=== PATIENT | male | born 1945 | race Caucasian/White ===

== ENCOUNTER → 2016-10-09 | Outpatient (CLI) | payer MEDICARE, BC ==
[~2016-10-09] MED LIST: DOBUTamine DRIP for NUC MED 500 MG in DEXTROSE/WATER 1 250ML.BAG IV ONE
--- NOTE | 2016-10-09 12:08 | ECHOS ---
DATE OF SERVICE: 10/09/2016 AGE: 71Y SEX: M HT: 69" WT: 265 lbs. Protocol Trent: Others: Stage: Dur. of Exercise: 7 minutes *Heart Rate Blood Pressure *Rest: 77 Rest: 63/94 * *Max. Achieved: 132 Maximum BP: 211/72 85% PMHR: 128 100% PMHR: 150 *METS: INDICATIONS: Chest pain. MEDICATIONS: See list. CLINICAL INFORMATION: Chest pain, hypertension, family history of coronary artery disease, history of asthma, and history of MULTIPLE ALLERGIES to medications. Resting ECG shows sinus rhythm, rate 77 beats per minute, NE interval ( ), normal ST-T waves. Utilizing dobutamine protocol, ( ) increased up to 40 mcg up to 30 mcg ( ) per minutes. Patient attained a peak heart rate of 132 beats per minute, which is approximately 85% predicted maximum heart rate without any chest pain or pressure. Baseline images shows normal thickening and contractibility. Postexercise image shows improved contractibility and thickening consistent with normal dobutamine stress echocardiogram. REAL ESTATE JOB TITLES IMPRESSION: 1. Dobutamine stress echocardiogram. 2. Patient did not report any symptoms throughout the study.
== END | disposition home or self-care (01) ==
LOC: RADNMMAIN 09:55
PROVIDERS: ATTEND Internal Medicine Cardiovascular Disease
DX: R07.2 Precordial pain (principal)
CPT/HCPCS: 93017; 93350; J1250

== ENCOUNTER → 2017-03-29 | Outpatient (CLI) | payer MEDICARE, BC ==
[2017-03-29 09:38] LABS: Basophils # (A) 0.1 k/uL (0-0.2); Basophils % (A) 1 %; CH 29.4; CHCM 32.8; Eosinophils # (A) 0.3 k/uL (0-0.7); Eosinophils % (A) 6 %; HCT 47.8 % (39.0-53.0); HDW 3.03; HGB 15.6 gm/dL (13.0-17.5); Luc # (Auto) 0.15; Luc % (Auto) 3; Lymphocytes # (A) 1.5 k/uL (1.0-4.8); Lymphocytes % (A) 26 %; MCH 29.4 pg (25.0-35.0); MCHC 32.7 g/dL (31.0-37.0); MCV 89.9 fL (80.0-100.0); Mean Platelet Volume 7.2; Monocytes # (A) 0.4 k/uL (0-1.0); Monocytes % (A) 7 %; Neutrophils # (A) 3.4 k/uL (1.3-7.7); Neutrophils % (A) 57 %; RBC 5.32 m/uL (4.30-5.90); RDW 14.1 % (11.5-15.5); WBC 5.9 k/uL (3.8-10.6); WBC (Perox) 6.16
[2017-03-29 10:09] LABS: ALT 39 U/L (21-72); AST 30 U/L (17-59); Alkaline Phosphatase 81 U/L (38-126); Anion Gap 9 mmol/L; Blood Urea Nitrogen 15 mg/dL (9-20); Calcium 9.5 mg/dL (8.4-10.2); Carbon Dioxide 27 mmol/L (22-30); Chloride 105 mmol/L (98-107); Cholesterol 197 mg/dL (<200); Glucose 129 mg/dL (74-99); HDL Cholesterol 39 mg/dL (40-60); Non-African American GFR(MDRD) >60 (>60 ml/min/1.73 sqM); Potassium 4.6 mmol/L (3.5-5.1); Sodium 141 mmol/L (137-145); Total Bilirubin 0.8 mg/dL (0.2-1.3); Total Protein 7.1 g/dL (6.3-8.2)
== END | disposition home or self-care (01) ==
LOC: LABWHC1 09:00
PROVIDERS: ATTEND Internal Medicine
DX: Z00.00 Encounter for general adult medical examination without abnormal findings (principal); E78.5 Hyperlipidemia, unspecified; I10 Essential (primary) hypertension; Z12.5 Encounter for screening for malignant neoplasm of prostate
CPT/HCPCS: 84439; 80061; 80053; 84443; 85025; 36415; G0103

== ENCOUNTER → 2018-02-15 | Outpatient (CLI) | payer MEDICARE, BC ==
[2018-02-15 10:46] LABS: Albumin 3.9 g/dL (3.5-5.0); Alkaline Phosphatase 67 U/L (38-126); Blood Urea Nitrogen 22 mg/dL (9-20); Calcium 9.5 mg/dL (8.4-10.2); Carbon Dioxide 28 mmol/L (22-30); Chloride 106 mmol/L (98-107); Cholesterol 171 mg/dL (<200); Glucose 127 mg/dL (74-99); HDL Cholesterol 29 mg/dL (40-60); LDL Cholesterol,Calculated 98 mg/dL (0-99); Potassium 4.6 mmol/L (3.5-5.1); Sodium 141 mmol/L (137-145); Total Bilirubin 0.5 mg/dL (0.2-1.3); Total Protein 6.8 g/dL (6.3-8.2); Triglycerides 221 mg/dL (<150)
[2018-02-15 10:59] LABS: T4, Free (Free Thyroxine) 0.73 ng/dL (0.78-2.19)
[2018-02-15 11:13] LABS: PSA Annual Screen 0.97 ng/mL (0.00-4.00)
[2018-02-15 16:09] LABS: Hemoglobin A1C 6.4 % (4.0-6.0)
== END | disposition home or self-care (01) ==
LOC: LABWHC1 09:21
PROVIDERS: ATTEND Internal Medicine
DX: I10 Essential (primary) hypertension (principal); J45.50 Severe persistent asthma, uncomplicated; Z12.5 Encounter for screening for malignant neoplasm of prostate
CPT/HCPCS: 84439; 80061; 82040; 82247; 82310; 82435; 82565; 82374; 84075; 84132; 84155; 84295; 82947; 84443; 84520; 82306; 83036; 36415; G0103

== ENCOUNTER → 2019-02-17 | Outpatient (CLI) | payer MEDICARE, BC ==
[2019-02-17 11:17] LABS: Basophils # (A) 0.1 k/uL (0-0.2); Basophils % (A) 1 %; Eosinophils # (A) 0.4 k/uL (0-0.7); Eosinophils % (A) 6 %; HCT 42.5 % (39.0-53.0); HGB 14.4 gm/dL (13.0-17.5); Lymphocytes # (A) 1.6 k/uL (1.0-4.8); Lymphocytes % (A) 27 %; MCH 28.7 pg (25.0-35.0); MCHC 33.8 g/dL (31.0-37.0); MCV 84.9 fL (80.0-100.0); Monocytes # (A) 0.5 k/uL (0-1.0); Monocytes % (A) 9 %; Neutrophils # (A) 3.2 k/uL (1.3-7.7); Neutrophils % (A) 54 %; Platelet Count 222 k/uL (150-450); RDW 15.4 % (11.5-15.5); WBC 5.9 k/uL (3.8-10.6)
[2019-02-17 17:51] LABS: African American GFR (CKD) 98.5 (60.0-200.0); Albumin 4.1 g/dL (3.80-4.90); Albumin/Globulin Ratio 2.05 (1.60-3.17); Anion Gap 7.7 mmol/L (4.00-12.00); BUN/Creat Ratio 17.78 Ratio (12.00-20.00); Calcium 9.2 mg/dL (8.7-10.3); Carbon Dioxide 29.3 mmol/L (21.6-31.8); Chol/HDL Ratio 4.81; LDL Cholesterol,Calculated 106.2 mg/dL (0.0-131.0); Potassium 4.6 mmol/L (3.5-5.5); Total Bilirubin 0.8 mg/dL (0.2-1.2); Total Protein 6.1 g/dL (6.2-8.2); VLDL Calculation 30.8 mg/dL (5.00-40.00)
[2019-02-17 18:27] LABS: T4, Free (Free Thyroxine) 0.8 ng/dL (0.80-1.80)
== END | disposition home or self-care (01) ==
LOC: LABWHC1 10:06
PROVIDERS: ATTEND Internal Medicine
DX: Z00.00 Encounter for general adult medical examination without abnormal findings (principal); E78.5 Hyperlipidemia, unspecified; E55.9 Vitamin D deficiency, unspecified; R73.9 Hyperglycemia, unspecified; Z79.899 Other long term (current) drug therapy; Z12.5 Encounter for screening for malignant neoplasm of prostate
CPT/HCPCS: 36415; 80053; 80061; 82306; 84153; 84439; 84443; 85025

== ENCOUNTER → 2019-08-25 | Outpatient (CLI) | payer MEDICARE, BC ==
[2019-08-25 11:46] LABS: Basophils # (A) 0.1 k/uL (0-0.2); Basophils % (A) 1 %; Eosinophils # (A) 0.3 k/uL (0-0.7); Eosinophils % (A) 4 %; HCT 45.5 % (39.0-53.0); HGB 14.6 gm/dL (13.0-17.5); Lymphocytes # (A) 2.2 k/uL (1.0-4.8); Lymphocytes % (A) 30 %; MCH 27.4 pg (25.0-35.0); MCHC 32.1 g/dL (31.0-37.0); MCV 85.4 fL (80.0-100.0); Mean Platelet Volume 7.4; Monocytes # (A) 0.5 k/uL (0-1.0); Monocytes % (A) 6 %; Neutrophils # (A) 4.1 k/uL (1.3-7.7); Neutrophils % (A) 56 %; Platelet Count 266 k/uL (150-450); RBC 5.33 m/uL (4.30-5.90); RDW 14.3 % (11.5-15.5); WBC 7.3 k/uL (3.8-10.6)
[2019-08-25 12:08] LABS: Total Eosinophil Count 307 #EOS/uL (150-300)
== END | disposition home or self-care (01) ==
LOC: LABWHC1 10:39
PROVIDERS: ATTEND Internal Medicine
DX: J45.50 Severe persistent asthma, uncomplicated (principal)
CPT/HCPCS: 36415; 85008; 85025

== ENCOUNTER → 2020-04-29 | Outpatient (CLI) | payer MEDICARE, BC ==
[2020-04-29 12:13] LABS: Basophils % (A) 0 %; Eosinophils % (A) 0 %; HCT 45.8 % (39.0-53.0); HGB 14.4 gm/dL (13.0-17.5); Lymphocytes # (A) 1.6 k/uL (1.0-4.8); Lymphocytes % (A) 21 %; MCH 26.7 pg (25.0-35.0); MCHC 31.5 g/dL (31.0-37.0); MCV 84.9 fL (80.0-100.0); Mean Platelet Volume 7.9; Monocytes # (A) 0.5 k/uL (0-1.0); Monocytes % (A) 7 %; Neutrophils # (A) 5.2 k/uL (1.3-7.7); Neutrophils % (A) 70 %; Platelet Count 239 k/uL (150-450); RDW 14.2 % (11.5-15.5); WBC 7.4 k/uL (3.8-10.6)
[2020-04-29 20:29] LABS: African American GFR (CKD) 97.9 (60.0-200.0); Albumin 4.2 g/dL (3.80-4.90); Albumin/Globulin Ratio 1.75 (1.60-3.17); Anion Gap 11.5 mmol/L (4.00-12.00); BUN/Creat Ratio 15.56 Ratio (12.00-20.00); Calcium 9.2 mg/dL (8.7-10.3); Carbon Dioxide 25.5 mmol/L (21.6-31.8); Chol/HDL Ratio 4.46; Globulin 2.4 g/dL (1.6-3.3); LDL Cholesterol,Calculated 109.6 mg/dL (0.0-131.0); Non-African American GFR(CKD) 84.4 (60.0-200.0); Potassium 3.6 mmol/L (3.5-5.5); Total Protein 6.6 g/dL (6.2-8.2); VLDL Calculation 25.4 mg/dL (5.00-40.00)
[2020-04-29 20:37] LABS: Prostate Specific Antigen 1.2 ng/mL (0.0-6.5)
== END | disposition home or self-care (01) ==
LOC: LABWHC1 09:50
PROVIDERS: ATTEND Internal Medicine
DX: Z00.00 Encounter for general adult medical examination without abnormal findings (principal); Z12.5 Encounter for screening for malignant neoplasm of prostate; E55.9 Vitamin D deficiency, unspecified; E78.5 Hyperlipidemia, unspecified
CPT/HCPCS: 36415; 80053; 80061; 82306; 84153; 84439; 84443; 85025

== ENCOUNTER → 2021-06-02 | Outpatient (CLI) | payer MEDICARE, BC ==
[2021-06-02 13:13] LABS: Basophils # (A) 0.1 k/uL (0-0.2); Basophils % (A) 1 %; Eosinophils # (A) 0.3 k/uL (0-0.7); Eosinophils % (A) 5 %; HCT 45.2 % (39.0-53.0); HGB 14.9 gm/dL (13.0-17.5); Lymphocytes # (A) 2.3 k/uL (1.0-4.8); Lymphocytes % (A) 34 %; MCV 84.9 fL (80.0-100.0); Mean Platelet Volume 8.7; Monocytes # (A) 0.6 k/uL (0-1.0); Monocytes % (A) 8 %; Neutrophils # (A) 3.3 k/uL (1.3-7.7); Neutrophils % (A) 49 %; Platelet Count 252 k/uL (150-450); RBC 5.32 m/uL (4.30-5.90); RDW 14.2 % (11.5-15.5); WBC 6.8 k/uL (3.8-10.6)
[2021-06-02 13:26] LABS: Total Eosinophil Count 340 #EOS/uL (150-300)
== END | disposition home or self-care (01) ==
LOC: LABWHC1 11:54
PROVIDERS: ATTEND Internal Medicine
DX: J45.50 Severe persistent asthma, uncomplicated (principal)
CPT/HCPCS: 36415; 82785; 85008; 85025

== ENCOUNTER → 2021-12-28 | Outpatient (CLI) | payer MEDICARE, BC ==
--- NOTE | 2021-12-28 10:27 | CT ---
EXAMINATION TYPE: CT brain wo con DATE OF EXAM: 12/28/2021 COMPARISON: None HISTORY: double vision CT DLP: 1162.8 mGycm Automated exposure control for dose reduction was used. Helical imaging through the brain. FINDINGS: Minimal inflammatory change present in the inferior aspect of the left maxillary sinus. Calvarium is intact. Cortical atrophy is present. There is no hemorrhage or hydrocephalus. Periventricular white m atter shows patchy low attenuation. Cerebral vascular calcifications are present. Orbits show symmetr ic appearance. IMPRESSION: AGE-RELATED CHANGES OF ATROPHY AND PROBABLE CHRONIC SMALL VESSEL ISCHEMIA. MILD SINUS DISEASE.
--- NOTE | 2021-12-28 11:10 | US ---
EXAMINATION TYPE: US carotid duplex BILAT DATE OF EXAM: 12/28/2021 COMPARISON: NONE CLINICAL HISTORY: H53.2 Double vision. Patient has been having vision problems EXAM MEASUREMENTS: RIGHT: Peak Systolic Velocity (PSV) cm/sec ----- Right CCA: 87.9 ----- Right ICA: 71.3 ----- Right ECA: 90.9 ICA/CCA ratio: 0.8 RIGHT: End Diastole cm/sec ----- Right CCA: 16.0 ----- Right ICA: 13.1 ----- Right ECA: 11.3 LEFT: Peak Systolic Velocity (PSV) cm/sec ----- Left CCA: 69.5 ----- Left ICA: 156 ----- Left ECA: 107 ICA/CCA ratio: 2.2 LEFT: End Diastole cm/sec ----- Left CCA: 11.9 ----- Left ICA: 15.7 ----- Left ECA: 12.1 VERTEBRALS (direction of flow): Right Vertebral: Antegrade Left Vertebral: Antegrade Rhythm: Normal Grayscale, color Doppler, spectral Doppler imaging performed the carotid arteries. Waveform analysis does not show significant stenosis of the internal carotid artery on the right. Hemodynamic significa nt stenosis of the proximal internal carotid artery on the left is noted. Plaque seen in both bulbs IMPRESSION: Hemodynamic significant stenosis of the proximal internal carotid artery on the left aurora esponds to 50-69% diameter reduction by Doppler criteria is suspected although end-diastolic velocity is not elevated, an indirect measurement of carotid stenosis No hemodynamic significant stenosis of the proximal internal carotid artery on the right by Doppler criteria, an indirect measurement of ca rotid stenosis Criteria for Assigning % of Stenosis / Diameter reduction (Estimation based on the indirect measurements of the internal carotid artery velocities (ICA PSV). 1. Normal (no stenosis)=ICA PSV < 125 cm/s: ratio < 2.0: ICA EDV<40 cm/s. 2. Less than 50% stenosis=ICA PSV < 125 cm/s: ratio < 2.0: ICA EDV<40 cm/s. 3. 50 to 69% stenosis=ICA PSV of 125 to 230 cm/s: ration 2.0 ? 4.0: ICA EDV 40-100 cm/s. 4. Greater than 70% stenosis to near occlusion= ICA PSV > 230 cm/s: ratio > 4.0: ICA EDV > 100 cm/s. 5. Near occlusion= ICA PSV velocities may be low or undetectable: variable ratio and ICA EDV. 6. Total occlusion=unable to detect flow.
== END | disposition home or self-care (01) ==
LOC: RADCTMAIN 09:33
PROVIDERS: ATTEND Internal Medicine
DX: H53.2 Diplopia (principal)
CPT/HCPCS: 70450; 93880

== ENCOUNTER → 2023-01-22 | Outpatient (CLI) | payer MEDICARE ==
[2023-01-22 11:04] VITALS: BP 188/82; PULSE 77; RESP 14; TEMP 98.5
--- NOTE | 2023-01-22 14:32 | P.PAINPG ---
PQRS Measure Charge Sheet Comment: HISTORY OF PRESENT ILLNESS: 77 yr old male w at side as a referral from Dr Stevens presents today w severe and chronic LBS secondary to DDD, spndylosis and afacet arthropathy wtihotu meylopathy for evaluation. Pt states pain level is provoked at 8 /10 in intensity, constant, localized in the R lowr lumbar spine, tight in character w shooting pain towards the R sacrum. Pain is provoked by heat or overactivity. Pain is alleviated by PT w massage x 6 wks which he is currently in, use of a cane for ambulatory assistance, medications (Tramadol, Ibu), topical, repositioning and rest. Oswestry axial pain score at 26. PMH: OA, HTN, DM II, GERD PSH: BL Knee Replacements, L RCT Repair x2, C4-C5 Fusion w ACDF SH: Hx of tobacco use, No ETOH use, No illicit drug use, . FH: Fa- CAD. Mo- ALS. All: See list Meds: See list REVIEW OF ORGAN SYSTEMS: CONSTITUTIONAL: No fevers or chills. No recent weight loss. NEUROLOGICAL: + numbness and tingling along the distal extremities. No seizure disorders or headaches. MUSCULOSKELETAL: + pain PSYCHIATRIC: Denies current depression or suicidal thoughts. Physical Examinations : Constitutional : Cooperative , not in acute distress . Neurologic : Cranial nerve II to XII intact. No focal neurological deficits. Psychiatric : alert & oriented x 3. Matching mood & appropriate affect. Judgment & insight intact. Musculoskeletal : Cervical Spine Motor strength in the deltoid and biceps: Normal right side. Normal Left side Motor strength biceps and the wrist extensors: Normal right side . Normal left side Motor strength in the triceps muscle: Normal right side. Normal left side Deep tendon reflexes: Normal at the biceps. Normal at Brachioradialis. Normal at triceps Vertebral body tenderness to deep palpation over Cervical facet loading test: positive bilaterally Spurling test: positive bilaterally Neck distraction test: positive bilaterally Magda sign: positive bilaterally Lumbar spine Motor strength lower extremities ,thigh and legs 5/5 Right side , 5/5 Left side Deep tendon reflexes : Normal Knee Jerk. Normal Ankle Jerk Vertebral body tenderness over R L5 Grande Test positive Lumbar facet Loading Test: positive Right / positive Left Range of motion of the lumbar spine Flexion 30 degrees, extension 10 degrees Straight Leg Raise test: Left/ Right positive at 30 degrees Eliel test: positive right / positive left. Severe tenderness over the Sacroiliac joint on the Right / Left sides Gaenslen test: positive bilaterally Seated flexion test: positive bilaterally. Sacral spine : Severe tenderness over the Sacroiliac joint: right side / left side Range of motion: Flexion of the lumbar spine <60 degrees Range of motion: Extension of the lumbar spine <20 degrees Gaenslen's Test positive Terrence's Test positive Eliel test: positive right side / left side Thigh Thrust Test Sacral Thrust Test Imaging: MRI noncontrast of the lumbar spine from 10/06/22 reviewed Assessment/ Plan : Lumbar DDD Recommendation of R TFESI L5-S1. May need a series of injections for optimal pain relief. Risks, benefits of procedure discussed and patient verbalized understanding. Admits to aspirin or anti- coagulant use or medical history of diabetes. Protocol for discontinuation/ continuation of medications javid procedure discussed. Minimal anesthesia provided, if clinically indicated, consisting of Versed and Fentanyl. Ultram 50mg #12 NR. Use, side effects, adverse reactions and safe storage discussed. All questions answered. I have spent greater than 30 minutes on patient care today. Dr Vergara was available by phone for the evaluation of this patient. The time was used to review the medical records including relevant urine studies and Prescription history (MAPs), review of the available imaging, evaluation and examination of the patient, coordination of care with the medical staff and if applicable referring physicians, as well as creation of the medical record PQRS Narrative: Smoking Status Former smoker Home Medications: Ambulatory Orders Brimonidine Tartrate [Alphagan P] 1 drop OP DAILY 10/27/13 Budesonide [Pulmicort] 200 meq INHALATION BID 10/27/13 Cyclobenzaprine [Flexeril] 5 mg PO BID PRN 10/27/13 Desloratadine/Pseudoephedrine [Clarinex-D 12 Hour Tablet] 5 mg PO DAILY 10/27/13 EPINEPHrine (Auto Inject) [Epipen] 0.3 mg IM ONCE PRN 10/27/13 Fluconazole [Diflucan] 100 mg PO BID PRN 10/27/13 Ipratropium/Albuterol Sulfate [Duoneb 0.5 mg-3 mg/3 ml Soln] 1 applicate INHALATION DIRECTED PRN 10/27/13 Potassium Chloride 20 meq PO BID 10/27/13 Travoprost [Travatan Z] 1 drop OP DAILY 10/27/13 diphenhydrAMINE [Benadryl] 100 mg PO DIRECTED PRN 10/27/13 B Complex-Vit C-Vit E-Zinc [Z-Bec] 1 each PO DAILY@1200 10/31/13 Calcium Carbonate/Vitamin D3 [Os-Lyle 500+D3 Caplet] 1 tab PO BID 10/31/13 Esomeprazole Magnesium [NexIUM] 20 mg PO BID 10/31/13 Guaifenesin/Pseudoephedrne HCl [Mucinex D ER Tablet] 1 tab PO DIRECTED PRN 10/31/13 Ipratropium/Albuterol Sulfate [Duoneb 0.5 mg-3 mg/3 ml Soln] 3 ml INHALATION DIRECTED PRN 10/31/13 Multivitamin [Men's Multi-Vitamin] 1 each PO DIRECTED 10/31/13 Wrgq-Takv-Xgr 6.25-5-10Mg/5Ml [Phenergan VC with Codeine] 5 ml PO DIRECTED PRN 10/31/13 Metoprolol Succinate [Toprol XL] 37.5 mg PO BID 09/01/14 Losartan [Cozaar] 50 mg PO BID 10/29/14 Bimatoprost [Lumigan .01% Ophth Soln] 1 drop BOTH EYES DIRECTED 11/30/16 Omalizumab [Xolair] 300 mg SQ DIRECTED 06/28/17 Ergocalciferol [Vitamin D2 (DRISDOL)] 1 tab PO WEEKLY 02/28/18 metFORMIN HCL [Glucophage] 500 mg PO BID 10/20/21 Aspirin EC [Ecotrin Low Dose] 81 mg PO DAILY 01/22/23 Controlled Substance Measures - Controlled Substance Measures Is patient prescribed a controlled substance at discharge?: Yes When asked, does pt state using other controlled substances?: Yes If prescribed controlled substance>3 days was MAPS reviewed?: Prescribed <3 Days
== END ==
LOC: PNWHC3 10:07
PROVIDERS: ATTEND Specialist
DX: M47.816 Spondylosis without myelopathy or radiculopathy, lumbar region (principal); M51.36 Other intervertebral disc degeneration, lumbar region; M48.061 Spinal stenosis, lumbar region without neurogenic claudication; M19.90 Unspecified osteoarthritis, unspecified site; I10 Essential (primary) hypertension; E11.9 Type 2 diabetes mellitus without complications; K21.9 Gastro-esophageal reflux disease without esophagitis; Z91.018 Allergy to other foods; Z91.011 Allergy to milk products; Z91.040 Latex allergy status; Z91.013 Allergy to seafood; Z91.048 Other nonmedicinal substance allergy status; Z91.010 Allergy to peanuts; Z88.6 Allergy status to analgesic agent; Z88.1 Allergy status to other antibiotic agents; Z79.84 Long term (current) use of oral hypoglycemic drugs; Z79.899 Other long term (current) drug therapy; Z87.891 Personal history of nicotine dependence; Z88.8 Allergy status to other drugs, medicaments and biological substances; Z79.82 Long term (current) use of aspirin; Z79.01 Long term (current) use of anticoagulants
CPT/HCPCS: 99211

== ENCOUNTER → 2023-02-08 | Day surgery (SDC) | payer MEDICARE ==
[~2023-02-08] MED LIST changes: +DEXAMETHASONE SOD PHOSPHATE 10 MG/ML 1 ML VIAL ONE; -DOBUTamine DRIP for NUC MED 500 MG in DEXTROSE/WATER 1 250ML.BAG IV ONE; +LACTATED RINGERS 1,000 ML IV SCH
[2023-02-08 10:06] VITALS: TEMP 97
[2023-02-08 10:12] LABS: Glucose,Whole Blood 112 mg/dL (70-110)
--- NOTE | 2023-02-08 10:28 | P.PCN ---
Date of Procedure: 02/08/23 Procedure(s) Performed: PREOPERATIVE DIAGNOSIS: 1-Lumbar radiculopathy . 2-lumbar degenerative disc disease. 3-lumbar spondylosis with lumbar facet arthropathy without myelopathy POSTOPERATIVE DIAGNOSIS: 1-lumbar radiculopathy. 2-lumbar degenerative disc disease. 3-lumbar spondylosis with facet arthropathy without myelopathy PROCEDURE 1. Transforaminal epidural steroid injection under fluoroscopic guidance at right L5-S1 level. (Fluoroscopy images stored on file in the radiology Department ) ANESTHESIA: Local with 1% lidocaine 3 ml. EBL: Minimal PROCEDURE INDICATION: The patient with low back pain and radiculopathy symptoms unresponsive to conservative treatment. PROCEDURE DESCRIPTION / TECHNIQUE: The patient was seen and identified in the preoperative area. Risks, benefits, complications, and alternatives were discussed with the patient. The patient agreed to proceed with the procedure and signed the consent. IV was started, and vital signs were stable. Patient was taken to the OR and time out was completed. The patient was placed in the prone position on procedure table and a pillow was placed under the abdomen to reduce lumbar lordosis. The lumbosacral area was prepped and draped in the usual sterile fashion. Critical pause was taken. Vital signs were closely monitored during the procedure. Using oblique fluoroscopy, the chin of the ``Chad dog at L5-S1 level was identified, and the skin and deeper tissues just below was localized with 1% lidocaine. Subsequently, a 22-gauge 5-inch spinal needle was advanced under a tunneled view fluoroscopic guidance just underneath the chin of the ``Chad dog at the right L5-S1 Under lateral fluoroscopy, the needle was then advanced to the posterior border of the interforaminal space. After negative aspiration of CSF and blood and with no paresthesias, Subsequently, 3 mL of block solution containing 10 mg Dexamethasone and 2 mL of 0.9% normal saline PF was injected. Needle was removed . At the end of the procedure, skin was cleansed, and bandages were applied. COMPLICATIONS:none DISPOSITION / PLANS: The patient was placed in a supine position and transferred to the recovery area in a stable condition for observation. There was no evidence of lower extremity motor or sensory deficit after the procedure. Patient was discharged from the recovery room after meeting discharge criteria. Home discharge instructions were given to the patient by the staff. The patient was reexamined prior to discharge. Isovue was not injected because patient has ALLERGY to IVP dye
[2023-02-08 10:48] VITALS: RESP 16
[2023-02-08 10:50] VITALS: BP 180/78; PULSE 64
--- NOTE | 2023-02-08 10:54 | FL ---
Intraoperative/procedural fluoroscopic services were provided. Total fluoroscopy time is 1.4 seconds with a total of 2 submitted images to PACS. Please see the operative/procedural note for further deta ils. DAP: 0.08592 mGym2
== END ==
LOC: ORPAIN 09:01
PROVIDERS: ATTEND Specialist
DX: M51.16 Intervertebral disc disorders with radiculopathy, lumbar region (principal); M47.26 Other spondylosis with radiculopathy, lumbar region; Z79.82 Long term (current) use of aspirin
CPT/HCPCS: 64483; J1100

== ENCOUNTER → 2023-06-08 | Outpatient (CLI) | payer MEDICARE ==
--- NOTE | 2023-06-08 17:33 | CA ---
Transthoracic Echo Report Name: Griffin Ramirez Age: 77 Gender: M : 1945 Exam Date: 06/08/2023 11:38 Exam Location: [facility] Ht (in): 70 Wt (lb): 250 Ordering Physician: Shadi Irizarry MD ([id number]) Attending/Referring Phys: Juan C MACDONALD [employer] Operator Norma Bradley RDCS Procedure CPT: Indications: I42.0 Dilated Cardiomyopathy Cardiac Hx: Technical Quality: Fair Contrast 1: Total Dose (mL): Contrast 2: Total Dose (mL): MEASUREMENTS (Male / Female) Normal Values 2D ECHO LV Diastolic Diameter PLAX 5.8 cm 4.2 - 5.9 / 3.9 - 5.3 cm LV Systolic Diameter PLAX 4.2 cm IVS Diastolic Thickness 1.9 cm 0.6 - 1.0 / 0.6 - 0.9 cm LVPW Diastolic Thickness 1.6 cm 0.6 - 1.0 / 0.6 - 0.9 cm LV Relative Wall Thickness 0.6 RV Internal Dim ED PLAX 3.4 cm LV Diastolic Volume MOD BP 110.9 cm??? 67 - 155 / 56 - 104 cm??? LV Systolic Volume MOD BP 60.0 cm??? 22 - 58 / 19 - 49 cm??? LV Ejection Fraction MOD BP 45.9 % >= 55 % LV Cardiac Index MOD BP 1627.2 cm???/min???m??? LV Diastolic Volume MOD 4C 154.0 cm??? LV Systolic Volume MOD 4C 85.1 cm??? LV Ejection Fraction MOD 4C 44.8 % LV Cardiac Index MOD 4C 2203.3 cm???/min???m??? LV Diastolic Length 4C 8.7 cm LV Systolic Length 4C 7.8 cm LV Diastolic Volume MOD 2C 80.1 cm??? LV Systolic Volume MOD 2C 43.2 cm??? LV Ejection Fraction MOD 2C 46.0 % LV Cardiac Index MOD 2C 1178.0 cm???/min???m??? LV Diastolic Length 2C 8.5 cm LV Systolic Length 2C 8.1 cm M-MODE Aortic Root Diameter MM 4.1 cm LA Systolic Diameter MM 3.7 cm LA Ao Ratio MM 0.9 DOPPLER AV Peak Velocity 165.7 cm/s AV Peak Gradient 11.0 mmHg AV Mean Velocity 114.1 cm/s AV Mean Gradient 5.9 mmHg AV Velocity Time Integral 30.0 cm AI Peak Velocity 406.1 cm/s AI Peak Gradient 66.0 mmHg AI Pressure Half Time 611.6 ms LVOT Peak Velocity 115.3 cm/s LVOT Peak Gradient 5.3 mmHg LVOT Velocity Time Integral 21.4 cm Mitral E Point Velocity 164.1 cm/s Mitral A Point Velocity 0.4 cm/s Mitral E to A Ratio 412.1 MV Deceleration Time 211.7 ms MV E' Velocity 3.7 cm/s Mitral E to MV E' Ratio 44.3 FINDINGS Left Ventricle Severely increased septal wall thickness. Mildly increased left ventricular systolic volume. Mildly decreased left ventricular ejection fraction. Left ventricular ejection fraction is estimated at 45-50 %. Right Ventricle Normal right ventricular size and function. Right ventricular systolic pressure within normal limits. Right Atrium Normal right atrial size. Left Atrium Normal left atrial size. Mitral Valve Structurally normal mitral valve. Mitral valve thickened. Mild mitral annular calcification. Mild mitral regurgitation. Aortic Valve No aortic stenosis. Mild aortic regurgitation. Tricuspid Valve Structurally normal tricuspid valve. Mild tricuspid regurgitation. Pulmonic Valve Structurally normal pulmonic valve. Trace pulmonic regurgitation. Pericardium No pericardial effusion. Aorta Normal size aortic root and proximal ascending aorta. CONCLUSIONS Left ventricular ejection fraction is estimated at 45-50 %. Mildly decreased left ventricular ejection fraction. Mildly dilated LV cavity No obvious regional wall motion abnormality Calcific aortic valve with mild regurgitation Mild MR, mitral annular calcification . Previewed by: Dr Alvaro Soto (Electronically Signed) Final Date: 08 June 2023 17:33
== END | disposition home or self-care (01) ==
LOC: RADECHMAIN 11:04
PROVIDERS: ATTEND Internal Medicine Cardiovascular Disease
DX: I08.0 Rheumatic disorders of both mitral and aortic valves (principal); I42.0 Dilated cardiomyopathy; I80.9 Phlebitis and thrombophlebitis of unspecified site
CPT/HCPCS: 93306

== ENCOUNTER → 2023-08-15 | Outpatient (CLI) | payer MEDICARE ==
[2023-08-15 10:33] VITALS: BP 137/78; PULSE 89; RESP 15; TEMP 98.6
--- NOTE | 2023-08-15 14:47 | P.PAINPG ---
PQRS Measure Charge Sheet Comment: HISTORY OF PRESENT ILLNESS: A 77 yr old male w at side presents today w severe and chronic LBP secondary to DDD, spondylosis and facet arthropathy without myelopathy, R Sacroiliitis for evaluation s/p R TFESI L5-S1 #1. Pt states he experienced % pain relief x 6 mo s/p procedure. Pt states pain level is provoked at 7 /10 in intensity, constant, localized in the R lower lumbar spine and tailbone, predominantly axial, tight in character w occasional shooting pain towards the R sacrum. Pain is provoked by sitting for periods >20 min. Pain is alleviated by PT w massage x 6 wks which he is currently in, use of a cane for ambulatory assistance, medications, topical, repositioning and rest. Oswestry axial pain score at 26. Interventional procedures include R TFESI L5-S1 x1 Medications include Tramadol, Ibu REVIEW OF ORGAN SYSTEMS: CONSTITUTIONAL: No fevers or chills. No recent weight loss. NEUROLOGICAL: + numbness and tingling along the distal extremities. No seizure disorders or headaches. MUSCULOSKELETAL: + pain PSYCHIATRIC: Denies current depression or suicidal thoughts. Physical Examinations : Constitutional : Cooperative , not in acute distress . Neurologic : Cranial nerve II to XII intact. No focal neurological deficits. Psychiatric : alert & oriented x 3. Matching mood & appropriate affect. Judgment & insight intact. Musculoskeletal : Cervical Spine Motor strength in the deltoid and biceps: Normal right side. Normal Left side Motor strength biceps and the wrist extensors: Normal right side . Normal left side Motor strength in the triceps muscle: Normal right side. Normal left side Deep tendon reflexes: Normal at the biceps. Normal at Brachioradialis. Normal at triceps Vertebral body tenderness to deep palpation over Cervical facet loading test: positive bilaterally Spurling test: positive bilaterally Neck distraction test: positive bilaterally Magda sign: positive bilaterally Lumbar spine Motor strength lower extremities ,thigh and legs 5/5 Right side , 5/5 Left side Deep tendon reflexes : Normal Knee Jerk. Normal Ankle Jerk Vertebral body tenderness over R L5 Grande Test positive Lumbar facet Loading Test: positive Right / positive Left Range of motion of the lumbar spine Flexion 30 degrees, extension 10 degrees Straight Leg Raise test: Left/ Right positive at 30 degrees Eliel test: positive right / positive left. Severe tenderness over the Sacroiliac joint on the Right / Left sides Gaenslen test: positive bilaterally Seated flexion test: positive bilaterally. Sacral spine : Severe tenderness over the Sacroiliac joint: right side / left side Range of motion: Flexion of the lumbar spine <60 degrees Range of motion: Extension of the lumbar spine <20 degrees Gaenslen's Test positive on R Eliel test: positive right side / left side Thigh Thrust Test +R Sacral Thrust Test Imaging: MRI noncontrast of the lumbar spine from 10/06/22 reviewed Assessment/ Plan : Lumbar DDD, R Sacroiliitis Recommendation of R SI injection #1. May need a series of injections for optimal pain relief. Risks, benefits of procedure discussed and patient verbalized understanding. Admits to aspirin or anti- coagulant use or medical history of diabetes. Protocol for discontinuation/ continuation of medications javid procedure discussed. Ultram 50mg #12 NR. Use, side effects, adverse reactions and safe storage discussed. All questions answered. I have spent greater than 30 minutes on patient care today. Dr Vergara was available by phone for the evaluation of this patient. The time was used to review the medical records including relevant urine studies and Prescription history (MAPs), review of the available imaging, evaluation and examination of the patient, coordination of care with the medical staff and if applicable referring physicians, as well as creation of the medical record PQRS Narrative: Smoking Status Former smoker Hx Alcohol Use (MH) No Home Medications: Ambulatory Orders Brimonidine Tartrate [Alphagan P] 1 drop OP DAILY 10/27/13 Budesonide [Pulmicort] 200 meq INHALATION BID 10/27/13 Cyclobenzaprine [Flexeril] 5 mg PO BID PRN 10/27/13 Desloratadine/Pseudoephedrine [Clarinex-D 12 Hour Tablet] 5 mg PO DAILY 10/27/13 EPINEPHrine (Auto Inject) [Epipen] 0.3 mg IM ONCE PRN 10/27/13 Fluconazole [Diflucan] 100 mg PO BID PRN 10/27/13 Ipratropium/Albuterol Sulfate [Duoneb 0.5 mg-3 mg/3 ml Soln] 1 applicate INHALATION DIRECTED PRN 10/27/13 Travoprost [Travatan Z] 1 drop OP DAILY 10/27/13 diphenhydrAMINE [Benadryl] 100 mg PO DIRECTED PRN 05/05/14 B Complex-Vit C-Vit E-Zinc [Z-Bec] 1 each PO DAILY@1200 10/31/13 Calcium Carbonate/Vitamin D3 [Os-Lyle 500+D3 Caplet] 1 tab PO BID 10/31/13 Esomeprazole Magnesium [NexIUM] 20 mg PO BID 10/31/13 Guaifenesin/Pseudoephedrne HCl [Mucinex D ER Tablet] 1 tab PO DIRECTED PRN 10/31/13 Ipratropium/Albuterol Sulfate [Duoneb 0.5 mg-3 mg/3 ml Soln] 3 ml INHALATION DIRECTED PRN 10/31/13 Multivitamin [Men's Multi-Vitamin] 1 each PO DIRECTED 10/31/13 Mbfr-Giwi-Jfa 6.25-5-10Mg/5Ml [Phenergan VC with Codeine] 5 ml PO DIRECTED PRN 10/31/13 Bimatoprost [Lumigan .01% Ophth Soln] 1 drop BOTH EYES DIRECTED 11/30/16 Ergocalciferol [Vitamin D2 (DRISDOL)] 1 tab PO WEEKLY 02/28/18 metFORMIN HCL [Glucophage] 500 mg PO BID 10/20/21 Aspirin EC [Ecotrin Low Dose] 81 mg PO DAILY 01/22/23 traMADol HCL 50 mg PO Q6H PRN 3 Days #12 tab 01/22/23 Ibuprofen [Motrin] 1 tab PO TID PRN 02/08/23 Metoprolol Succinate [Toprol XL] 1 tab PO BID 02/08/23 Controlled Substance Measures - Controlled Substance Measures Is patient prescribed a controlled substance at discharge?: No
== END ==
LOC: PNWHC3 09:43
PROVIDERS: ATTEND Specialist
DX: M51.36 Other intervertebral disc degeneration, lumbar region (principal); M46.1 Sacroiliitis, not elsewhere classified; Z87.891 Personal history of nicotine dependence; Z79.82 Long term (current) use of aspirin; Z91.018 Allergy to other foods; Z88.8 Allergy status to other drugs, medicaments and biological substances; Z91.040 Latex allergy status; Z91.011 Allergy to milk products; Z91.013 Allergy to seafood; Z88.1 Allergy status to other antibiotic agents; Z91.09 Other allergy status, other than to drugs and biological substances; Z91.010 Allergy to peanuts
CPT/HCPCS: 99211

== ENCOUNTER 2023-08-30 09:33 | Day surgery (SDC) | payer MEDICARE ==
[2023-08-27 17:03] VITALS: BMI 36.9
[~2023-08-30 09:33] MED LIST changes: -DEXAMETHASONE SOD PHOSPHATE 10 MG/ML 1 ML VIAL ONE
[2023-08-30 10:08] LABS: Glucose,Whole Blood 128 mg/dL (70-110)
[2023-08-30 10:14] VITALS: TEMP 97.2
[2023-08-30] MEDS ORDERED: ROPIVACAINE 5MG/ML 20ML VIAL ONE (10:29)
[2023-08-30] MEDS ORDERED: DEXAMETHASONE SOD PHOSPHATE 10 MG/ML 1 ML VIAL ONE (10:29)
--- NOTE | 2023-08-30 10:40 | P.PCN ---
Date of Procedure: 08/30/23 Procedure(s) Performed: Procedure=1- Right sacroiliac joints steroid injection under fluoroscopy guidance (fluoroscopy image stored on file in the radiology Department ) Preoperative diagnosis= 1- right sacroiliitis 2-lumbar degenerative disc disease 3-lumbar facet arthropathy Postoperative diagnosis=Same as preop Diagnosis . Complication = none Condition= stable Anesthesia= local anesthesia with ropivacaine 0.5% 4 ml only Indication for the procedure= patient complaining of low back pain , examination was positive for severe tenderness over the sacroiliac joints bilaterally and patient diagnosed with sacroiliitis, for this reason he was good candidate for sacroiliac joint steroid injection. Description of the procedure= procedure risk and benefits discussed with the patient, including but not limited, risk of infection and bleeding, and ALLERGIC reaction to the medication and not complete pain relief and patient agreed with the preceding patient taken to the operating room, placed in prone position or standard monitors applied to the patient then after induction of anesthesia back prepped with chlorhexidine 3 times , Then under strict sterile technique, first I did the right sacroiliac joint the which was identified under fluoroscopy guidance been local infiltration of the skin and subcu interstitial with lidocaine 1% then 22-gauge 5 inches long Quincke Needle advanced slowly under fluoroscopy and placed in the right sacroiliac joint needle placement confirmed with AP and oblique and lateral view, and after appropriate needle placement confirmed and after negative aspiration, or heme , then Ropivacaine 0.5% 2 mL, and 15 mg of Dexamethasone mixed together and injected in the right sacroiliac joint after negative aspiration patient tolerated the procedure well without any complication. note= Isovue was not injected because patient had allergy to iodine I used dexamethasone ( instead of Depomedrol ) because patient had severe allergy to milk
[2023-08-30] MEDS: IV FLUID CONTINUATION 1,000 ML IV ONE (10:43)
[2023-08-30 11:53] VITALS: BP 170/80; PULSE 74; RESP 97
--- NOTE | 2023-08-30 13:21 | FL ---
EXAMINATION TYPE: FL guided pain mgmt statistic DATE OF EXAM: 08/30/2023 FLUOROSCOPY Fluoroscopy time of 2.6 minutes was used during SI joint injection. 2 image/s document/s the procedu re. dap [id number] mGycm2.
== END 2023-08-30 11:42 | disposition home or self-care (01) ==
LOC: ORPAIN 09:33
PROVIDERS: ATTEND Anesthesiology
DX: M46.1 Sacroiliitis, not elsewhere classified (principal); M51.36 Other intervertebral disc degeneration, lumbar region; M47.816 Spondylosis without myelopathy or radiculopathy, lumbar region
CPT/HCPCS: 27096; J1100; J2795

== ENCOUNTER 2023-09-19 19:20 | Emergency (ER) | payer MEDICARE ==
[2023-09-19 21:08] LABS: Basophils # (A) 0.1 k/uL (0-0.2); Basophils % (A) 1 %; Eosinophils # (A) 0.3 k/uL (0-0.7); Eosinophils % (A) 4 %; HCT 46.1 % (39.0-53.0); HGB 15.5 gm/dL (13.0-17.5); Lymphocytes # (A) 1.7 k/uL (1.0-4.8); Lymphocytes % (A) 24 %; MCH 30.8 pg (25.0-35.0); MCHC 33.6 g/dL (31.0-37.0); MCV 91.7 fL (80.0-100.0); Monocytes # (A) 0.6 k/uL (0-1.0); Monocytes % (A) 8 %; Neutrophils # (A) 4.2 k/uL (1.3-7.7); Neutrophils % (A) 60 %; Platelet Count 202 k/uL (150-450); RBC 5.03 m/uL (4.30-5.90); RDW 12.6 % (11.5-15.5); WBC 7.1 k/uL (3.8-10.6)
[2023-09-19 21:24] LABS: ALT 14 U/L (4-49); AST 27 U/L (17-59); African American GFR (CKD) >90 (>60 ml/min/1.73 sqM); Albumin 4.1 g/dL (3.5-5.0); Alkaline Phosphatase 75 U/L (38-126); Anion Gap 9 mmol/L; Blood Urea Nitrogen 18 mg/dL (9-20); Calcium 9.7 mg/dL (8.4-10.2); Carbon Dioxide 25 mmol/L (22-30); Chloride 104 mmol/L (98-107); Glucose 130 mg/dL (74-99); Magnesium 1.8 mg/dL (1.6-2.3); Non-African American GFR(CKD) 86 (>60 ml/min/1.73 sqM); Potassium 4.4 mmol/L (3.5-5.1); Sodium 138 mmol/L (137-145); Total Bilirubin 0.8 mg/dL (0.2-1.3); Total Protein 7.1 g/dL (6.3-8.2)
[2023-09-19 21:27] LABS: Partial Thromboplastin Time 26.4 sec (22.0-30.0); Prothrombin Time 10.7 sec (10.0-12.5)
--- NOTE | 2023-09-19 21:33 | XR ---
EXAMINATION TYPE: XR chest 2V DATE OF EXAM: 09/19/2023 8:33 PM CLINICAL INDICATION:Male, 77 years old with history of Chest Pain; [facility] COMPARISON: 04/10/2023 chest x-ray and before TECHNIQUE: XR chest 2V. Frontal and lateral views of the chest.. FINDINGS: Lines/Tubes/Devices: EKG leads overlie the chest. No indwelling lines are seen. Heart/mediastinum: Heart appears mildly to moderately enlarged. Tortuous aorta with atherosclerotic calcification. Pulmonary vascularity: Pulmonary vascular congestion. Increased interstitial markings can be seen wit h edema or pneumonitis. An element of chronic change is possible. Lungs/Pleura: There is no evidence of pleural effusion, focal consolidation, or pneumothorax. Nodula r density over the right infrahilar region not seen on priors. Musculoskeletal: No acute osseous abnormality demonstrated in the limits of the exam. Moderate degen erative changes of the spine with multilevel osteophytes. Mild degenerative change of the shoulders. ACDF hardware over the lower cervical region. Other findings: None. IMPRESSION: 1. Cardiomegaly and mild pulmonary vascular congestion. Correlate clinically for congestive heart fa ilure. 2. Nodular density right infrahilar region, of uncertain etiology. Recommend CT chest with contrast in the near future for further assessment.
--- NOTE | 2023-09-19 21:40 | ED ---
General Adult HPI - General Chief complaint: Recheck/Abnormal Lab/Rx Stated complaint: Hypertension Time Seen by Provider: 09/19/23 20:19 Source: patient Mode of arrival: ambulatory Limitations: no limitations - History of Present Illness Initial comments: 77-year-old male presenting to the ED with a chief complaint of hypertension. Per 's , yesterday patient was having episodes where he seems to take longer to respond compared to usual and was staring off in space. States that he would slowly come around to what she was saying. Reports today the patient is back to his normal self. States at that time due to symptoms checked his blood pressure and found to be in the 200s systolic. Reports that she has intermittently checked his blood pressure today and has found it to be in the 200s systolic prompting presentation to the ED for further evaluation. Patient denies chest pain, shortness of breath, nausea, vomiting. Patient at this time currently has no complaints. - Related Data Home Medications Medication Instructions Recorded Confirmed Budesonide [Pulmicort] 1 dose INHALATION BID 10/27/13 08/27/23 Cyclobenzaprine [Flexeril] 5 mg PO BID PRN 10/27/13 08/27/23 Desloratadine/Pseudoephedrine 5 mg PO DAILY 10/27/13 08/27/23 [Clarinex-D 12 Hour Tablet] EPINEPHrine (Auto Inject) [Epipen] 0.3 mg IM ONCE PRN 10/27/13 08/27/23 Fluconazole [Diflucan] 100 mg PO BID PRN 10/27/13 08/27/23 diphenhydrAMINE [Benadryl] 100 mg PO DIRECTED PRN 10/27/13 08/27/23 B Complex-Vit C-Vit E-Zinc [Z-Bec] 1 each PO DAILY 10/31/13 08/27/23 Calcium Carbonate/Vitamin D3 1 tab PO BID 10/31/13 08/27/23 [Os-Lyle 500+D3 Caplet] Esomeprazole Magnesium [NexIUM] 20 mg PO BID 10/31/13 08/27/23 Guaifenesin/Pseudoephedrne HCl 1 tab PO DIRECTED PRN 10/31/13 08/27/23 [Mucinex D ER Tablet] Ipratropium/Albuterol Sulfate 3 ml INHALATION DIRECTED PRN 10/31/13 08/27/23 [Duoneb 0.5 mg-3 mg/3 ml Soln] Multivitamin [Men's Multi-Vitamin] 1 each PO DAILY 10/31/13 08/27/23 Bimatoprost [Lumigan .01% Ophth 1 drop BOTH EYES HS 11/30/16 08/27/23 Soln] Ergocalciferol [Vitamin D2 1 tab PO WEEKLY 02/28/18 08/27/23 (DRISDOL)] Aspirin EC [Ecotrin Low Dose] 81 mg PO DAILY 01/22/23 08/27/23 Metoprolol Succinate [Toprol XL] 50 mg PO BID 02/08/23 08/27/23 Previous Rx's Medication Instructions Recorded traMADol HCL 50 mg PO Q6H PRN 3 Days #12 tab 01/22/23 Allergies Allergy/AdvReac Type Severity Reaction Status Date / Time avocado [Avocado] Allergy Severe Anaphylaxis Verified 09/19/23 19:31 banana [Banana] Allergy Severe Anaphylaxis Verified 09/19/23 19:31 iodine Allergy Severe Anaphylaxis Verified 09/19/23 19:31 kiwi Allergy Severe Anaphylaxis Verified 09/19/23 19:31 latex Allergy Severe Anaphylaxis Verified 09/19/23 19:31 milk Allergy Severe Anaphylaxis Verified 09/19/23 19:31 shellfish derived Allergy Severe Anaphylaxis Verified 09/19/23 19:31 MADAI Inhibitors Allergy ASTHMA Verified 09/19/23 19:31 casein [Casein] Allergy Unknown Verified 09/19/23 19:31 chocolate flavor Allergy Unknown Verified 09/19/23 19:31 clarithromycin [From Biaxin] Allergy Rash/Hives Verified 09/19/23 19:31 diltiazem HCl [From Cardizem] Allergy Dyspnea Verified 09/19/23 19:31 doxycycline Allergy Rash/Hives Verified 09/19/23 19:31 erythromycin base Allergy Rash/Hives Verified 09/19/23 19:31 [Erythromycin Base] methylprednisolone Allergy Anaphylaxis Verified 09/19/23 19:31 [From Solu-Medrol] nickel [Nickel] Allergy Rapid Verified 09/19/23 19:31 Heart Rate orange (food color) Allergy Unknown Verified 09/19/23 19:31 peanut Allergy Dyspnea Verified 09/19/23 19:31 acetaminophen [From Tylenol] AdvReac Severe HEADACHES Verified 09/19/23 19:31 hfa inhaler Allergy Severe Anaphylaxis Uncoded 09/19/23 19:31 HFA Allergy Unknown Uncoded 09/19/23 19:31 whey Allergy Unknown Uncoded 09/19/23 19:31 Review of Systems ROS Statement: Those systems with pertinent positive or pertinent negative responses have been documented in the HPI. ROS Other: All systems not noted in ROS Statement are negative. Past Medical History Past Medical History: Asthma, Cancer, Chest Pain / Angina, GERD/Reflux, GI Bleed, Hypertension, Pneumonia, Sleep Apnea/CPAP/BIPAP Additional Past Medical History / Comment(s): Borderline Diabetic. 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 Poor hearing. Hx arrhythmia, hx basal cell skin cancer, hx cellulitis in left lower leg, hx kidney stones, gout, no CPAP use at this time. History of Any Multi-Drug Resistant Organisms: None Reported Past Surgical History: Adenoidectomy, Back Surgery, Heart Catheterization, Joint Replacement, Orthopedic Surgery, Tonsillectomy Additional Past Surgical History / Comment(s): Cataracts removed, colonoscopy, EGD, bilateral knee arthroscopy,bilateral knee replacements, vasectomy, laminectomy,Pain Clinic Procedure. Past Anesthesia/Blood Transfusion Reactions: No Reported Reaction Past Psychological History: No Psychological Hx Reported Smoking Status: Former smoker Past Alcohol Use History: None Reported Past Drug Use History: None Reported - Past Family History father Family Medical History: Myocardial Infarction ([place]) General Exam Limitations: no limitations General appearance: alert, in no apparent distress Eye exam: Present: normal appearance, PERRL, EOMI Neck exam: Present: normal inspection Respiratory exam: Present: normal lung sounds bilaterally Cardiovascular Exam: Present: regular rate GI/Abdominal exam: Present: soft, normal bowel sounds. Absent: distended, t enderness, guarding, rebound, rigid Extremities exam: Present: normal inspection, other (Strength and sensation of bilateral upper extremities equal and intact.) Neurological exam: Present: alert, oriented X3, CN II-XII intact (Intact [id number], rapid alternating hand movements, [id number].) Skin exam: Present: warm, dry Course Vital Signs 09/19/23 09/19/23 09/19/23 19:29 21:24 22:08 Temperature 99.1 F Pulse Rate 75 70 74 Respiratory 18 18 16 Rate Blood Pressure 212/88 166/94 179/88 O2 Sat by Pulse 97 98 96 Oximetry Medical Decision Making - Medical Decision Making Was pt. sent in by a medical professional or institution (ROSMERY Schneider, HEEL ATTACHER, urgent care, hospital, or group home...) When possible be specific @ -No Did you speak to anyone other than the patient for history (EMS, parent, family, police, friend...)? What history was obtained from this source @ -Spoke to both patient and his for parts of history. For further details please see HPI. Did you review nursing and triage notes (agree or disagree)? Why? @ -I reviewed and agree with nursing and triage notes Were old charts reviewed (outside hosp., previous admission, EMS record, old EKG, old radiological studies, urgent care reports/EKG's, group home records)? Report findings @ -No old charts were reviewed Differential Diagnosis (chest pain, altered mental status, abdominal pain women, abdominal pain men, vaginal bleeding, weakness, fever, dyspnea, syncope, headache, dizziness, GI bleed, back pain, seizure, CVA, palpatations, mental health, musculoskeletal)? @ -Differential Chest Pain: Stable Angina, Unstable Angina, STEMI, NSTEMI Aortic Dissection, Pneumothorax, Musculoskeletal, Esophageal Spasm GERD, Cholecystitis, Pancreatitis, Zoster, this is not meant to be an all-inclusive list. EKG interpreted by me (3pts min.). @ -EKG interpreted by me showing a sinus rhythm with first-degree AV block with a NV interval at 268. Rate of [address]-T wave changes. QRS 109, QT/QTc 403/428. No prior for comparison. X-rays interpreted by me (1pt min.). @ -Chest x-ray interpreted me which revealed no evidence of acute process. CT interpreted by me (1pt min.). @ -CT brain interpreted me which revealed no evidence of acute process. U/S interpreted by me (1pt. min.). @ -None done What testing was considered but not performed or refused? (CT, X-rays, U/S, la bs)? Why? @ -None What meds were considered but not given or refused? Why? @ -None Did you discuss the management of the patient with other professionals (professionals i.e. , ROSMERY, HEEL ATTACHER, lab, RT, psych nurse, social service technician, manager of training and development, teacher, maritime officer, block and case maker)? Give summary @ -No Was smoking cessation discussed for >3mins.? @ -No Was critical care preformed (if so, how long)? @ -No Were there social determinants of health that impacted care today? How? (Homelessness, low income, unemployed, alcoholism, drug addiction, transportation, low edu. Level, literacy, decrease access to med. care, halfway, rehab)? @ -No Was there de-escalation of care discussed even if they declined (Discuss DNR or withdrawal of care, Hospice)? DNR status @ -No What co-morbidities impacted this encounter? (DM, HTN, Smoking, COPD, CAD, Cancer, CVA, ARF, Chemo, Hep., AIDS, mental health diagnosis, sleep apnea, morbid obesity)? @ -Obesity, hypertension Was patient admitted / discharged? Hospital course, mention meds given and route, prescriptions, significant lab abnormalities, going to OR and other pertinent info. @ -Discharge 77-year-old male presenting to the ED with complaints of hypertension. Per , stated that yesterday patient seemed that he was taking longer to respond than usual however today notes that he is back to his normal self. States due to this checked his blood pressure yesterday and noted he was in the 200s systolic. States that she has been intermittently checking it since then and reports that she has seen his blood pressure intermittently in the 200s systolic prompting presentation to the ED for further evaluation. At this time patient has no complaints. Denies chest pain or shortness of breath. Laboratory studies reviewed. CBC, CMP largely unremarkable. Troponin undetectable. EKG showed a sinus rhythm with nonspecific findings. Discharged home in stable condition and advised follow-up with PCP and cardiology. Discussed return precautions with patient and family who verbalized agreement. Undiagnosed new problem with uncertain prognosis? @ -No Drug Therapy requiring intensive monitoring for toxicity (Heparin, Nitro, Insulin, Cardizem)? @ -No Were any procedures done? @ -No Diagnosis/symptom? @ -Hypertension Acute, or Chronic, or Acute on Chronic? @ -Acute Uncomplicated (without systemic symptoms) or Complicated (systemic symptoms)? @ -Uncomplicated Side effects of treatment? @ -No Exacerbation, Progression, or Severe Exacerbation? @ -No Poses a threat to life or bodily function? How? (Chest pain, [place], [place], pneumonia, PE, COPD, DKA, ARF, appy, cholecystitis, CVA, Diverticulitis, Homicidal, Suicidal, threat to staff... and all critical care pts) @ -No - Lab Data Result diagrams: 09/19/23 20:39 09/19/23 20:39 Lab Results 09/19/23 09/19/23 09/19/23 Range/Units 20:39 20:39 20:39 WBC 7.1 (3.8-10.6) k/uL RBC 5.03 (4.30-5.90) m/uL Hgb 15.5 (13.0-17.5) gm/dL Hct 46.1 (39.0-53.0) % MCV 91.7 (80.0-100.0) fL MCH 30.8 (25.0-35.0) pg MCHC 33.6 (31.0-37.0) g/dL RDW 12.6 (11.5-15.5) % Plt Count 202 (150-450) k/uL MPV 8.0 Neutrophils % 60 % Lymphocytes % 24 % Monocytes % 8 % Eosinophils % 4 % Basophils % 1 % Neutrophils # 4.2 (1.3-7.7) k/uL Lymphocytes # 1.7 (1.0-4.8) k/uL Monocytes # 0.6 (0-1.0) k/uL Eosinophils # 0.3 (0-0.7) k/uL Basophils # 0.1 (0-0.2) k/uL PT 10.7 (10.0-12.5) sec INR 1.0 (<1.2) APTT 26.4 (22.0-30.0) sec Sodium 138 (137-145) mmol/L Potassium 4.4 (3.5-5.1) mmol/L Chloride 104 (98-107) mmol/L Carbon Dioxide 25 (22-30) mmol/L Anion Gap 9 mmol/L BUN 18 (9-20) mg/dL Creatinine 0.82 (0.66-1.25) mg/dL Est GFR (CKD-EPI)AfAm >90 (>60 ml/min/1.73 sqM) Est GFR (CKD-EPI)NonAf 86 (>60 ml/min/1.73 sqM) Glucose 130 H (74-99) mg/dL Calcium 9.7 (8.4-10.2) mg/dL Magnesium 1.8 (1.6-2.3) mg/dL Total Bilirubin 0.8 (0.2-1.3) mg/dL AST 27 (17-59) U/L ALT 14 (4-49) U/L Alkaline Phosphatase 75 (38-126) U/L Troponin I (0.000-0.034) ng/mL Total Protein 7.1 (6.3-8.2) g/dL Albumin 4.1 (3.5-5.0) g/dL 09/19/23 Range/Units 20:39 WBC (3.8-10.6) k/uL RBC (4.30-5.90) m/uL Hgb (13.0-17.5) gm/dL Hct (39.0-53.0) % MCV (80.0-100.0) fL MCH (25.0-35.0) pg MCHC (31.0-37.0) g/dL RDW (11.5-15.5) % Plt Count (150-450) k/uL MPV Neutrophils % % Lymphocytes % % Monocytes % % Eosinophils % % Basophils % % Neutrophils # (1.3-7.7) k/uL Lymphocytes # (1.0-4.8) k/uL Monocytes # (0-1.0) k/uL Eosinophils # (0-0.7) k/uL Basophils # (0-0.2) k/uL PT (10.0-12.5) sec INR (<1.2) APTT (22.0-30.0) sec Sodium (137-145) mmol/L Potassium (3.5-5.1) mmol/L Chloride (98-107) mmol/L Carbon Dioxide (22-30) mmol/L Anion Gap mmol/L BUN (9-20) mg/dL Creatinine (0.66-1.25) mg/dL Est GFR (CKD-EPI)AfAm (>60 ml/min/1.73 sqM) Est GFR (CKD-EPI)NonAf (>60 ml/min/1.73 sqM) Glucose (74-99) mg/dL Calcium (8.4-10.2) mg/dL Magnesium (1.6-2.3) mg/dL Total Bilirubin (0.2-1.3) mg/dL AST (17-59) U/L ALT (4-49) U/L Alkaline Phosphatase (38-126) U/L Troponin I <0.012 (0.000-0.034) ng/mL Total Protein (6.3-8.2) g/dL Albumin (3.5-5.0) g/dL Disposition Clinical Impression: Hypertensive urgency Disposition: HOME SELF-CARE Condition: Good Instructions (If sedation given, give patient instructions): Hypertensive Crisis (ED) Additional Instructions: Please return to the Emergency Department if symptoms worsen or any other concerns. Please follow-up with your PCP and cardiology. Is patient prescribed a controlled substance at d/c from ED?: No Referrals: Jocelyne Guzman MD [Primary Care Provider] - 1-2 days Time of Disposition: 23:11
--- NOTE | 2023-09-19 22:27 | CT ---
EXAMINATION TYPE: CT brain wo con CT DLP: 1153.8 mGycm, Automated exposure control for dose reduction was used. DATE OF EXAM: 09/19/2023 9:57 PM COMPARISON: None. CLINICAL INDICATION:Male, 77 years old with history of hx ams HTN, ams/htn TECHNIQUE: Brain: Axial CT images of the brain were obtained with coronal and sagittal reformats created and rev iewed. Contrast used: None. Oral contrast used: None. FINDINGS: Extra-axial spaces: No abnormal extra-axial fluid collections. Ventricular system: Ventricles appear dilated in proportion to the degree of cerebral atrophy. Cerebral parenchyma: No increased attenuation to suggest acute intraparenchymal hemorrhage. The gra y-white matter interface appears maintained. Moderate generalized brain atrophy. Scattered hypoatte nuating areas are seen within the cerebral white matter, nonspecific but most often seen with chronic microvascular ischemic changes; moderate in degree. Cerebellum: No acute abnormality. Mass effect: No evidence of mass effect or midline shift. Intracranial vasculature: Atherosclerotic calcifications of the larger arteries near the skull base. Soft tissues: No acute or concerning abnormality. Visualized orbits: Orbital contents appear grossly intact. There has likely been previous lens surg elizabeth. Calvarium/osseous structures: No evidence of calvarial fracture. Paranasal sinuses and mastoid air cells: Clear. MRI is more sensitive for detecting acute processes such as infarct, and may be considered if clinica lly warranted. IMPRESSION: 1. No acute intracranial CT abnormality. 2. Moderate atrophy and chronic microvascular ischemic changes.
[2023-09-19] MEDS: ASPIRIN 81 MG PO STA (23:05)
[2023-09-19] MEDS: ASPIRIN 325 MG TAB PO STA (23:15)
[2023-09-19 23:39] VITALS: BP 155/88; PULSE 78; RESP 19; TEMP 98.8
== END 2023-09-19 23:37 | disposition home or self-care (01) ==
LOC: EC 19:20
DX: I16.0 Hypertensive urgency (principal); I11.0 Hypertensive heart disease with heart failure; I50.9 Heart failure, unspecified; E66.9 Obesity, unspecified; Z79.82 Long term (current) use of aspirin; Z79.899 Other long term (current) drug therapy; Z87.891 Personal history of nicotine dependence; Z91.048 Other nonmedicinal substance allergy status; Z91.011 Allergy to milk products; Z91.010 Allergy to peanuts; Z91.013 Allergy to seafood; Z91.018 Allergy to other foods; Z88.8 Allergy status to other drugs, medicaments and biological substances; Z68.38 Body mass index [BMI] 38.0-38.9, adult
CPT/HCPCS: 36415; 70450; 71046; 80053; 83735; 84484; 85025; 85610; 85730; 99284

== ENCOUNTER → 2023-09-26 | Outpatient (CLI) | payer MEDICARE ==
--- NOTE | 2023-09-27 11:56 | MR ---
EXAMINATION TYPE: MR brain wo con DATE OF EXAM: 09/26/2023 COMPARISON: CT brain September 19, 2023 HISTORY: Follow up from ER visit 09-19-23, elevated BP 208/102. Unspecified speech disturbances. TECHNIQUE: Multiplanar, multisequence imaging of the brain and brainstem is performed without IV cont rast. FINDINGS: Diffusion weighted images demonstrate no evidence of a recent infarct or other diffusion abnormality. There is mild to moderate ventricular and sulcal prominence. There are moderate multifocal and conflu ent areas of T2 hyperintensity seen throughout the white matter bilaterally. Lesions are nonspecific in appearance and distribution. Midline structures demonstrate normal morphology. The craniocervical junction appears within normal limits. Normal vascular flow voids are present. Dominant left vertebral artery incidentally noted gina ling the basilar artery Bilateral aphakia is redemonstrated. IMPRESSION: 1. No MRI evidence for recent infarct. 2. There is mild/moderate diffuse cerebral atrophy and moderate nonspecific white matter changes favo r product of chronic small vessel ischemia in patient of this age.
== END | disposition home or self-care (01) ==
LOC: RADMRIMAIN 20:00
PROVIDERS: ATTEND Pediatrics
DX: G31.89 Other specified degenerative diseases of nervous system (principal); R90.82 White matter disease, unspecified
CPT/HCPCS: 70551

== ENCOUNTER → 2023-10-04 | Outpatient (CLI) | payer MEDICARE ==
[2023-10-04 14:21] VITALS: BP 186/91; PULSE 62; RESP 16; TEMP 97.1
--- NOTE | 2023-10-04 15:15 | P.PAINPG ---
PQRS Measure Charge Sheet Comment: HISTORY OF PRESENT ILLNESS: A 77 yr old male w at side presents today w severe and chronic LBP secondary to DDD, spondylosis and facet arthropathy without myelopathy, R Sacroiliitis for evaluation s/p R SI injection #1. Pt states he experienced 80 % pain relief x 5 wks s/p procedure. Pt states pain level is provoked at 3 /10 in intensity, constant, localized in the R lower lumbar spine and tailbone, predominantly axial, tight in character w occasional shooting pain towards the R sacrum. Pain is provoked by sitting for periods >20 min. Pain is alleviated by PT w massage x 6 wks which he is currently in, use of a cane for ambulatory assistance, medications, topical, repositioning and rest. Oswestry axial pain score at 21. Interventional procedures include R TFESI L5-S1 x1, R SI x1 Medications include Tramadol, Ibu REVIEW OF ORGAN SYSTEMS: CONSTITUTIONAL: No fevers or chills. No recent weight loss. NEUROLOGICAL: + numbness and tingling along the distal extremities. No seizure disorders or headaches. MUSCULOSKELETAL: + pain PSYCHIATRIC: Denies current depression or suicidal thoughts. Physical Examinations : Constitutional : Cooperative , not in acute distress . Neurologic : Cranial nerve II to XII intact. No focal neurological deficits. Psychiatric : alert & oriented x 3. Matching mood & appropriate affect. Judgment & insight intact. Musculoskeletal : Cervical Spine Motor strength in the deltoid and biceps: Normal right side. Normal Left side Motor strength biceps and the wrist extensors: Normal right side . Normal left side Motor strength in the triceps muscle: Normal right side. Normal left side Deep tendon reflexes: Normal at the biceps. Normal at Brachioradialis. Normal at triceps Vertebral body tenderness to deep palpation over Cervical facet loading test: positive bilaterally Spurling test: positive bilaterally Neck distraction test: positive bilaterally Magda sign: positive bilaterally Lumbar spine Motor strength lower extremities ,thigh and legs 5/5 Right side , 5/5 Left side Deep tendon reflexes : Normal Knee Jerk. Normal Ankle Jerk Vertebral body tenderness over R L5 Grande Test positive Lumbar facet Loading Test: positive Right / positive Left Range of motion of the lumbar spine Flexion 30 degrees, extension 10 degrees Straight Leg Raise test: Left/ Right positive at 30 degrees Eliel test: positive right / positive left. Severe tenderness over the Sacroiliac joint on the Right / Left sides Gaenslen test: positive bilaterally Seated flexion test: positive bilaterally. Sacral spine : Severe tenderness over the Sacroiliac joint: right side / left side Range of motion: Flexion of the lumbar spine <60 degrees Range of motion: Extension of the lumbar spine <20 degrees Gaenslen's Test positive on R Eliel test: positive right side / left side Thigh Thrust Test +R Sacral Thrust Test Imaging: MRI noncontrast of the lumbar spine from 10/06/22 reviewed Assessment/ Plan : Lumbar DDD, R Sacroiliitis Will manage residual pain and may RTC on an as needed basis. All questions answered. I have spent greater than 25 minutes on patient care today. Dr Vergara was available by phone for the evaluation of this patient. The time was used to review the medical records including relevant urine studies and Prescription history (MAPs), review of the available imaging, evaluation and examination of the patient, coordination of care with the medical staff and if applicable referring physicians, as well as creation of the medical record PQRS Narrative: Smoking Status Former smoker Hx Alcohol Use (MH) No Home Medications: Ambulatory Orders Budesonide [Pulmicort] 1 dose INHALATION BID 10/27/13 Cyclobenzaprine [Flexeril] 5 mg PO BID PRN 10/27/13 Desloratadine/Pseudoephedrine [Clarinex-D 12 Hour Tablet] 5 mg PO DAILY 10/27/13 EPINEPHrine (Auto Inject) [Epipen] 0.3 mg IM ONCE PRN 10/27/13 Fluconazole [Diflucan] 100 mg PO BID PRN 10/27/13 diphenhydrAMINE [Benadryl] 100 mg PO DIRECTED PRN 10/27/13 B Complex-Vit C-Vit E-Zinc [Z-Bec] 1 each PO DAILY 10/31/13 Calcium Carbonate/Vitamin D3 [Os-Lyle 500+D3 Caplet] 1 tab PO BID 10/31/13 Esomeprazole Magnesium [NexIUM] 20 mg PO BID 10/31/13 Guaifenesin/Pseudoephedrne HCl [Mucinex D ER Tablet] 1 tab PO DIRECTED PRN 10/31/13 Ipratropium/Albuterol Sulfate [Duoneb 0.5 mg-3 mg/3 ml Soln] 3 ml INHALATION DIRECTED PRN 10/31/13 Multivitamin [Men's Multi-Vitamin] 1 each PO DAILY 10/31/13 Bimatoprost [Lumigan .01% Ophth Soln] 1 drop BOTH EYES HS 11/30/16 Ergocalciferol [Vitamin D2 (DRISDOL)] 1 tab PO WEEKLY 02/28/18 Aspirin EC [Ecotrin Low Dose] 81 mg PO DAILY 01/22/23 traMADol HCL 50 mg PO Q6H PRN 3 Days #12 tab 01/22/23 Metoprolol Succinate [Toprol XL] 50 mg PO BID 02/08/23 Controlled Substance Measures - Controlled Substance Measures Is patient prescribed a controlled substance at discharge?: No
== END ==
LOC: PNWHC3 10:36
PROVIDERS: ATTEND Specialist
DX: M51.36 Other intervertebral disc degeneration, lumbar region (principal); M46.1 Sacroiliitis, not elsewhere classified; Z87.891 Personal history of nicotine dependence; Z91.018 Allergy to other foods; Z88.8 Allergy status to other drugs, medicaments and biological substances; Z91.011 Allergy to milk products; Z91.040 Latex allergy status; Z88.1 Allergy status to other antibiotic agents; Z91.09 Other allergy status, other than to drugs and biological substances; Z91.013 Allergy to seafood; Z91.010 Allergy to peanuts
CPT/HCPCS: 99211

== ENCOUNTER → 2023-12-03 | Outpatient (CLI) | payer MEDICARE ==
[2023-12-03 12:43] VITALS: BP 199/88; PULSE 65; RESP 16
--- NOTE | 2023-12-03 15:06 | P.PAINPG ---
PQRS Measure Charge Sheet Comment: HISTORY OF PRESENT ILLNESS: A 78 yr old male w at side presents today w severe and chronic LBP secondary to DDD, spondylosis and facet arthropathy without myelopathy, BL Sacroiliitis for evaluation. Pt states pain level is provoked at 8 /10 in intensity, constant, localized in the R lower lumbar spine and tailbone, predominantly axial, tight in character w occasional shooting pain towards the buttock. Pain is provoked by sitting for periods >20 min. Pain is alleviated by PT w massage x 6 wks which ended in Aug 2023, physician guided home stretches every morning since Aug 2023, use of a cane for ambulatory assistance, medications, topical, repositioning and rest. Oswestry axial pain score at 23. Interventional procedures include R TFESI L5-S1 x1, R SI x1 (Aug 2023) Medications include Tramadol, Ibu REVIEW OF ORGAN SYSTEMS: CONSTITUTIONAL: No fevers or chills. No recent weight loss. NEUROLOGICAL: + numbness and tingling along the distal extremities. No seizure disorders or headaches. MUSCULOSKELETAL: + pain PSYCHIATRIC: Denies current depression or suicidal thoughts. Physical Examinations : Constitutional : Cooperative , not in acute distress . Neurologic : Cranial nerve II to XII intact. No focal neurological deficits. Psychiatric : alert & oriented x 3. Matching mood & appropriate affect. Judgment & insight intact. Musculoskeletal : Cervical Spine Motor strength in the deltoid and biceps: Normal right side. Normal Left side Motor strength biceps and the wrist extensors: Normal right side . Normal left side Motor strength in the triceps muscle: Normal right side. Normal left side Deep tendon reflexes: Normal at the biceps. Normal at Brachioradialis. Normal at triceps Vertebral body tenderness to deep palpation over Cervical facet loading test: positive bilaterally Spurling test: positive bilaterally Neck distraction test: positive bilaterally Magda sign: positive bilaterally Lumbar spine Motor strength lower extremities ,thigh and legs 5/5 Right side , 5/5 Left side Deep tendon reflexes : Normal Knee Jerk. Normal Ankle Jerk Vertebral body tenderness over R L5 Grande Test positive Lumbar facet Loading Test: positive Right / positive Left Range of motion of the lumbar spine Flexion 30 degrees, extension 10 degrees Straight Leg Raise test: Left/ Right positive at 30 degrees Eliel test: positive right / positive left. Severe tenderness over the Sacroiliac joint on the Right / Left sides Gaenslen test: positive bilaterally Seated flexion test: positive bilaterally. Sacral spine : Severe tenderness over the Sacroiliac joint: right side / left side Range of motion: Flexion of the lumbar spine <60 degrees Range of motion: Extension of the lumbar spine <20 degrees Gaenslen's Test positive on R > L Eliel test: positive right side > left side Thigh Thrust Test BL positive Sacral Thrust Test Imaging: MRI noncontrast of the lumbar spine from 10/06/22 reviewed Assessment/ Plan : Lumbar DDD, BL Sacroiliitis Recommendation of BL SI injection #2. May need a series of injections for optimal pain relief. Risks, benefits of procedure discussed and pt verbalized understanding. All questions answered. I have spent greater than 25 minutes on patient care today. Dr Vergara was available by phone for the evaluation of this patient. The time was used to review the medical records including relevant urine studies and Prescription history (MAPs), review of the available imaging, evaluation and examination of the patient, coordination of care with the medical staff and if applicable referring physicians, as well as creation of the medical record PQRS Narrative: Smoking Status Former smoker Hx Alcohol Use (MH) No Home Medications: Ambulatory Orders Budesonide [Pulmicort] 1 dose INHALATION BID 10/27/13 Cyclobenzaprine [Flexeril] 5 mg PO BID PRN 10/27/13 Desloratadine/Pseudoephedrine [Clarinex-D 12 Hour Tablet] 5 mg PO DAILY 10/27/13 EPINEPHrine (Auto Inject) [Epipen] 0.3 mg IM ONCE PRN 10/27/13 Fluconazole [Diflucan] 100 mg PO BID PRN 10/27/13 diphenhydrAMINE [Benadryl] 100 mg PO DIRECTED PRN 10/27/13 B Complex-Vit C-Vit E-Zinc [Z-Bec] 1 each PO DAILY 10/31/13 Calcium Carbonate/Vitamin D3 [Os-Lyle 500+D3 Caplet] 1 tab PO BID 10/31/13 Esomeprazole Magnesium [NexIUM] 20 mg PO BID 10/31/13 Guaifenesin/Pseudoephedrne HCl [Mucinex D ER Tablet] 1 tab PO DIRECTED PRN 10/31/13 Ipratropium/Albuterol Sulfate [Duoneb 0.5 mg-3 mg/3 ml Soln] 3 ml INHALATION DIRECTED PRN 10/31/13 Multivitamin [Men's Multi-Vitamin] 1 each PO DAILY 10/31/13 Bimatoprost [Lumigan .01% Ophth Soln] 1 drop BOTH EYES HS 11/30/16 Ergocalciferol [Vitamin D2 (DRISDOL)] 1 tab PO WEEKLY 02/28/18 Aspirin EC [Ecotrin Low Dose] 81 mg PO DAILY 01/22/23 traMADol HCL 50 mg PO Q6H PRN 3 Days #12 tab 01/22/23 Metoprolol Succinate [Toprol XL] 50 mg PO BID 02/08/23 Controlled Substance Measures - Controlled Substance Measures Is patient prescribed a controlled substance at discharge?: No
== END ==
LOC: PNWHC3 11:55
PROVIDERS: ATTEND Specialist
DX: M46.1 Sacroiliitis, not elsewhere classified (principal); M51.36 Other intervertebral disc degeneration, lumbar region; Z91.018 Allergy to other foods; Z88.8 Allergy status to other drugs, medicaments and biological substances; Z91.040 Latex allergy status; Z88.1 Allergy status to other antibiotic agents; Z91.013 Allergy to seafood; Z91.011 Allergy to milk products; Z91.09 Other allergy status, other than to drugs and biological substances; Z91.010 Allergy to peanuts; Z87.891 Personal history of nicotine dependence
CPT/HCPCS: 99211

== ENCOUNTER 2023-12-18 09:24 | Day surgery (SDC) | payer MEDICARE ==
[2023-12-18] MEDS ORDERED: LACTATED RINGERS 1,000 ML IV SCH (09:41)
[2023-12-18 10:13] VITALS: RESP 18; TEMP 97.4
[2023-12-18 10:18] LABS: Glucose,Whole Blood 139 mg/dL (70-110)
[2023-12-18] MEDS ORDERED: DEXAMETHASONE SOD PHOSPHATE 10 MG/ML 1 ML VIAL ONE (10:53)
[2023-12-18] MEDS ORDERED: ROPIVACAINE 5MG/ML 20ML VIAL ONE (10:53)
--- NOTE | 2023-12-18 11:19 | P.PCN ---
Description of Procedure: Preprocedure diagnosis. Sacroiliac joint arthropathy. Postprocedure diagnosis. As above. Procedure done. Bilateral sacroiliac joint injection with local anesthetics and steroid under fluoroscopic guidance. Anesthesia. Local anesthetic infiltration. Continuous EKG, pulse ox, blood pressure, and verbal communication was maintained with the patient in OR. Blood loss. Minimal. Indication. Sacroiliac joint arthropathy. Discussed the procedure, alternatives, complications which may include infection,bleeding, nerve damage, aggravation of pain which could be permanent. Patient understands and questions were answered. Procedure note. After getting consent patient in OR in prone position. Back prepped with chlorhexidine and draped in sterile manner. After injecting 10 mL of 1% lidocaine subcutaneously, a 22-gauge spinal needle was introduced under tunnel vision of the fluoroscope in the lower and posterior one third of right sacroiliac joint. After needle position confirmation by AP and crosstable lateral view, After repeat negative aspiration, 2.5 mL solution was injected which consists of 1.5 ml of 0.5% Ropivacaine mixed with 1 mL of 10mg Decadron. In exactly same way left sacroiliac joint was injected with same amount of solution. After the procedure needles were taken out. Bandage applied. Disposition. Patient tolerated the procedure well. No complication. Patient was discharged home in stable condition.
[2023-12-18 11:26] VITALS: BP 166/72; PULSE 67
--- NOTE | 2023-12-18 11:49 | FL ---
EXAMINATION TYPE: FL guided pain mgmt statistic Intraoperative/procedural fluoroscopic services were provided. Total fluoroscopy time is 32.8 seconds with a total of 3 submitted images to PACS. Please s ee the operative/procedural note for further details. DAP: [id number] mGym2
== END 2023-12-18 11:38 | disposition home or self-care (01) ==
LOC: ORPAIN 09:24
PROVIDERS: ATTEND Pain Medicine Interventional Pain Medicine
DX: M46.1 Sacroiliitis, not elsewhere classified (principal)
CPT/HCPCS: 27096; J1100; J2795; G0260

== ENCOUNTER → 2024-01-02 | Outpatient (CLI) | payer MEDICARE ==
[2024-01-02 11:15] VITALS: BP 205/109; PULSE 80; RESP 16; TEMP 97.9
--- NOTE | 2024-01-02 14:03 | P.PAINPG ---
PQRS Measure Charge Sheet Comment: HISTORY OF PRESENT ILLNESS: A 78 yr old male w at side presents today w severe and chronic LBP secondary to DDD, spondylosis and facet arthropathy without myelopathy, BL Sacroiliitis for evaluation s/p BL SI injection #2. Pt states he experienced 80 % pain relief x 2 wks s/p procedure. Pt states pain level is provoked at 8 /10 in intensity, constant, localized in the R hip, tight in character without shooting pain. Pain is provoked by weight bearing activity. Pain is alleviated by PT w massage x 6 wks which ended in Aug 2023 (lumbar, hip), physician guided home stretches every morning since Aug 2023, use of a cane for ambulatory assistance, medications, topical, repositioning and rest. Oswestry axial pain score at 23. Interventional procedures include R TFESI L5-S1 x1, R SI x1 (Aug 2023), BL SI x1 (Nov 2023) Medications include Tramadol, Ibu REVIEW OF ORGAN SYSTEMS: CONSTITUTIONAL: No fevers or chills. No recent weight loss. NEUROLOGICAL: + numbness and tingling along the distal extremities. No seizure disorders or headaches. MUSCULOSKELETAL: + pain PSYCHIATRIC: Denies current depression or suicidal thoughts. Physical Examinations : Constitutional : Cooperative , not in acute distress . Neurologic : Cranial nerve II to XII intact. No focal neurological deficits. Psychiatric : alert & oriented x 3. Matching mood & appropriate affect. Judgment & insight intact. Musculoskeletal : Cervical Spine Motor strength in the deltoid and biceps: Normal right side. Normal Left side Motor strength biceps and the wrist extensors: Normal right side . Normal left side Motor strength in the triceps muscle: Normal right side. Normal left side Deep tendon reflexes: Normal at the biceps. Normal at Brachioradialis. Normal at triceps Vertebral body tenderness to deep palpation over Cervical facet loading test: positive bilaterally Spurling test: positive bilaterally Neck distraction test: positive bilaterally Magda sign: positive bilaterally Lumbar spine +R Trendelenburg Motor strength lower extremities ,thigh and legs 5/5 Right side , 5/5 Left side Deep tendon reflexes : Normal Knee Jerk. Normal Ankle Jerk Vertebral body tenderness over R L5 Grande Test positive Lumbar facet Loading Test: positive Right / positive Left Range of motion of the lumbar spine Flexion 30 degrees, extension 10 degrees Straight Leg Raise test: Left/ Right positive at 30 degrees Eliel test: positive right / positive left. Severe tenderness over the Sacroiliac joint on the Right / Left sides Gaenslen test: positive bilaterally Seated flexion test: positive bilaterally. Sacral spine : Severe tenderness over the Sacroiliac joint: right side / left side Range of motion: Flexion of the lumbar spine <60 degrees Range of motion: Extension of the lumbar spine <20 degrees Gaenslen's Test positive on R > L Eliel test: positive right side > left side Thigh Thrust Test BL positive Sacral Thrust Test Imaging: MRI noncontrast of the lumbar spine from 10/06/22 reviewed Awaiting MRI hip from Dr Hall which pt will deliver Assessment/ Plan : Lumbar DDD, BL Sacroiliitis, R Hip Trochanteric Bursitis Recommendation of R Trochanteric Bursa Injection #1. May need a series of injections for optimal pain relief. Risks, benefits of procedure discussed and pt verbalized understanding. All questions answered. I have spent greater than 25 minutes on patient care today. Dr Vergara was available by phone for the evaluation of this patient. The time was used to review the medical records including relevant urine studies and Prescription history (MAPs), review of the available imaging, evaluation and examination of the patient, coordination of care with the medical staff and if applicable referring physicians, as well as creation of the medical record - Pain Location Back Non-Pharmacological Interventions: Inactivity Pharmacological Interventions: PRN Medication PQRS Narrative: Smoking Status Former smoker Hx Alcohol Use (MH) No Home Medications: Ambulatory Orders Budesonide [Pulmicort] 1 dose INHALATION BID 10/27/13 Cyclobenzaprine [Flexeril] 5 mg PO BID PRN 10/27/13 Desloratadine/Pseudoephedrine [Clarinex-D 12 Hour Tablet] 5 mg PO DAILY 10/27/13 EPINEPHrine (Auto Inject) [Epipen] 0.3 mg IM ONCE PRN 10/27/13 Fluconazole [Diflucan] 100 mg PO BID PRN 10/27/13 diphenhydrAMINE [Benadryl] 100 mg PO DIRECTED PRN 10/27/13 B Complex-Vit C-Vit E-Zinc [Z-Bec] 1 each PO DAILY 10/31/13 Calcium Carbonate/Vitamin D3 [Os-Lyle 500+D3 Caplet] 1 tab PO BID 10/31/13 Esomeprazole Magnesium [NexIUM] 20 mg PO BID 10/31/13 Guaifenesin/Pseudoephedrne HCl [Mucinex D ER Tablet] 1 tab PO DIRECTED PRN 10/31/13 Ipratropium/Albuterol Sulfate [Duoneb 0.5 mg-3 mg/3 ml Soln] 3 ml INHALATION DIRECTED PRN 10/31/13 Multivitamin [Men's Multi-Vitamin] 1 each PO DAILY 10/31/13 Bimatoprost [Lumigan .01% Ophth Soln] 1 drop BOTH EYES HS 11/30/16 Ergocalciferol [Vitamin D2 (DRISDOL)] 1 tab PO WEEKLY 02/28/18 Aspirin EC [Ecotrin Low Dose] 81 mg PO DAILY 01/22/23 traMADol HCL 50 mg PO Q6H PRN 3 Days #12 tab 01/22/23 Metoprolol Succinate [Toprol XL] 50 mg PO BID 02/08/23 Spironolactone 25 mg PO DAILY 12/18/23 Controlled Substance Measures - Controlled Substance Measures Is patient prescribed a controlled substance at discharge?: No
== END ==
LOC: PNWHC3 10:58
PROVIDERS: ATTEND Specialist
DX: M46.1 Sacroiliitis, not elsewhere classified (principal); M51.36 Other intervertebral disc degeneration, lumbar region; M70.61 Trochanteric bursitis, right hip; Z87.891 Personal history of nicotine dependence; Z91.018 Allergy to other foods; Z91.040 Latex allergy status; Z88.8 Allergy status to other drugs, medicaments and biological substances; Z91.011 Allergy to milk products; Z91.013 Allergy to seafood; Z88.1 Allergy status to other antibiotic agents; Z91.09 Other allergy status, other than to drugs and biological substances; Z91.010 Allergy to peanuts
CPT/HCPCS: 99211

== ENCOUNTER 2024-03-04 09:31 | Day surgery (SDC) | payer MEDICARE ==
[2024-03-04 10:16] VITALS: RESP 16; TEMP 98
[2024-03-04 10:21] LABS: Glucose,Whole Blood 151 mg/dL (70-110)
[2024-03-04] MEDS ORDERED: ROPIVACAINE 5MG/ML 20ML VIAL ONE (10:36)
[2024-03-04] MEDS ORDERED: DEXAMETHASONE SOD PHOSPHATE 10 MG/ML 1 ML VIAL ONE (10:36)
[2024-03-04] MEDS ORDERED: LACTATED RINGERS 1,000 ML IV SCH (10:47)
--- NOTE | 2024-03-04 10:49 | P.PCN ---
Description of Procedure: Pre operative Diagnosis: Right-sided Trochanteric Bursitis Postprocedure diagnosis: As above. Procedure: Right greater Trochanteric Bursa injection under fluoroscopic guidance Anesthesia: Local: 1% Lidocaine . Complications: none Indications for Procedure: Patient had a history of greater trochanteric bursitis. Tried conservative therapy with minimal response. Came here for intervention procedure. Procedure and Findings: The patient was seen and examined. The written informed consent was obtained after explaining the risks, benefits and alternatives of the procedure to the patient. Patient agreed to proceed for the procedure signed the informed consent. The patient was brought to the procedure room and was placed in lateral position on the operating table. The skin preparation was done with ChloraPrep 1, and draping was done in usual sterile fashion. Sterile technique was observed throughout the procedure. Using fluoroscope in the AP/lateral view, the greater trochanter was identified. The middle of the greater trochanter was targeted for needle placement. 3 ml of 1% Lidocaine was injected with a 25 gauge needle to achieve adequate local anesthesia of the skin and subcutaneous tissue. then 22 gauge 3.5 inch needle was introduced and advanced into the target area under direct fluoroscopic guidance. A bony contact was felt and the needle was withdrawn for about two millimeters. A negative aspiration was confirmed. then total of 10ml solution containing Dexamethasone 20 mg mg and 8 ml of 0.5% preservative-free ropivacaine was injected slowly. The needle was removed intact, area was cleaned and bandage was applied. The patient tolerated the procedure very well. Additional comments: None Disposition : The patient was transferred to the recovery room and remained stable until discharged home. The patient was given detailed discharge instructions for infection, bleeding, increased pain at the injection site, and was advised to seek immediate medical attention should significant side effects develop. Patient was routinely examined by RN before discharging home. The patient will be followed up with Pain [facility] within 3 weeks.
[2024-03-04 11:06] VITALS: BP 169/65; PULSE 64
--- NOTE | 2024-03-04 11:13 | FL ---
EXAMINATION TYPE: FL guided pain mgmt statistic DATE OF EXAM: 03/04/2024 FLUOROSCOPY dap [id number] fl 3.4 large bursa joint injection One image
== END 2024-03-04 11:18 | disposition home or self-care (01) ==
LOC: ORPAIN 09:31
PROVIDERS: ATTEND Pain Medicine Interventional Pain Medicine
DX: M70.61 Trochanteric bursitis, right hip (principal)
CPT/HCPCS: 20610

== ENCOUNTER → 2024-03-20 | Outpatient (CLI) | payer MEDICARE ==
[2024-03-20 09:33] VITALS: BP 160/77; PULSE 64; RESP 17
--- NOTE | 2024-03-20 14:43 | P.PAINPG ---
PQRS Measure Charge Sheet Comment: HISTORY OF PRESENT ILLNESS: A 78 yr old male w at side presents today w severe and chronic LBP secondary to DDD, spondylosis and facet arthropathy without myelopathy, BL Sacroiliitis for evaluation s/p R Trochanteric Bursa Injection #1. Pt states he experienced 50 % pain relief x 2 wks s/p procedure. Pt states pain level is provoked at 4 /10 in intensity, constant, localized in the R hip, tight in character without shooting pain. Pain is provoked by weight bearing activity. Pain is alleviated by PT w massage x 6 wks which ended in Aug 2023 (lumbar, hip), physician guided home stretches every morning since Aug 2023, use of a cane for ambulatory assistance, medications, topical, repositioning and rest. Interventional procedures include R TFESI L5-S1 x1, R SI x1 (Aug 2023), BL SI x1 (Nov 2023), R Trochanteric Bursa Injection x1 (Feb 2024) Medications include Tramadol, Ibu, ASA REVIEW OF ORGAN SYSTEMS: CONSTITUTIONAL: No fevers or chills. No recent weight loss. NEUROLOGICAL: + numbness and tingling along the distal extremities. No seizure disorders or headaches. MUSCULOSKELETAL: + pain PSYCHIATRIC: Denies current depression or suicidal thoughts. Physical Examinations : Constitutional : Cooperative , not in acute distress . Neurologic : Cranial nerve II to XII intact. No focal neurological deficits. Psychiatric : alert & oriented x 3. Matching mood & appropriate affect. Judgment & insight intact. Musculoskeletal : Cervical Spine Motor strength in the deltoid and biceps: Normal right side. Normal Left side Motor strength biceps and the wrist extensors: Normal right side . Normal left side Motor strength in the triceps muscle: Normal right side. Normal left side Deep tendon reflexes: Normal at the biceps. Normal at Brachioradialis. Normal at triceps Vertebral body tenderness to deep palpation over Cervical facet loading test: positive bilaterally Spurling test: positive bilaterally Neck distraction test: positive bilaterally Magda sign: positive bilaterally Lumbar spine +R Trendelenburg Motor strength lower extremities ,thigh and legs 5/5 Right side , 5/5 Left side Deep tendon reflexes : Normal Knee Jerk. Normal Ankle Jerk Vertebral body tenderness over R L5 Grande Test positive Lumbar facet Loading Test: positive Right / positive Left Range of motion of the lumbar spine Flexion 30 degrees, extension 10 degrees Straight Leg Raise test: Left/ Right positive at 30 degrees Eliel test: positive right / positive left. Severe tenderness over the Sacroiliac joint on the Right / Left sides Gaenslen test: positive bilaterally Seated flexion test: positive bilaterally. Sacral spine : Severe tenderness over the Sacroiliac joint: right side / left side Range of motion: Flexion of the lumbar spine <60 degrees Range of motion: Extension of the lumbar spine <20 degrees Gaenslen's Test positive on R > L Eliel test: positive right side > left side Thigh Thrust Test BL positive Sacral Thrust Test Imaging: MRI noncontrast of the lumbar spine from 10/06/22 reviewed Awaiting MRI hip from Dr Hall which pt will deliver Assessment/ Plan : Lumbar DDD, BL Sacroiliitis, R Hip Trochanteric Bursitis Will manage residual pain and may RTC on an as needed basis. All questions answered. I have spent greater than 25 minutes on patient care today. Dr Vergara was available by phone for the evaluation of this patient. The time was used to review the medical records including relevant urine studies and Prescription history (MAPs), review of the available imaging, evaluation and examination of the patient, coordination of care with the medical staff and if applicable referring physicians, as well as creation of the medical record PQRS Narrative: Smoking Status Former smoker Hx Alcohol Use (MH) No Home Medications: Ambulatory Orders Budesonide [Pulmicort] 1 dose INHALATION BID 10/27/13 Cyclobenzaprine [Flexeril] 5 mg PO BID PRN 10/27/13 Desloratadine/Pseudoephedrine [Clarinex-D 12 Hour Tablet] 5 mg PO DAILY 10/27/13 EPINEPHrine (Auto Inject) [Epipen] 0.3 mg IM ONCE PRN 10/27/13 Fluconazole [Diflucan] 100 mg PO BID PRN 10/27/13 diphenhydrAMINE [Benadryl] 100 mg PO DIRECTED PRN 10/27/13 B Complex-Vit C-Vit E-Zinc [Z-Bec] 1 each PO DAILY 10/31/13 Calcium Carbonate/Vitamin D3 [Os-Lyle 500+D3 Caplet] 1 tab PO BID 10/31/13 Esomeprazole Magnesium [NexIUM] 20 mg PO BID 10/31/13 Guaifenesin/Pseudoephedrne HCl [Mucinex D ER Tablet] 1 tab PO DIRECTED PRN 10/31/13 Ipratropium/Albuterol Sulfate [Duoneb 0.5 mg-3 mg/3 ml Soln] 3 ml INHALATION DIRECTED PRN 10/31/13 Multivitamin [Men's Multi-Vitamin] 1 each PO DAILY 10/31/13 Bimatoprost [Lumigan .01% Ophth Soln] 1 drop BOTH EYES HS 11/30/16 Ergocalciferol [Vitamin D2 (DRISDOL)] 1 tab PO WEEKLY 02/28/18 Aspirin EC [Ecotrin Low Dose] 325 mg PO DAILY 01/22/23 traMADol HCL 50 mg PO Q6H PRN 3 Days #12 tab 01/22/23 Metoprolol Succinate [Toprol XL] 50 mg PO BID 02/08/23 Spironolactone 25 mg PO DAILY 12/18/23 Controlled Substance Measures - Controlled Substance Measures Is patient prescribed a controlled substance at discharge?: No
== END ==
LOC: PNWHC3 09:09
PROVIDERS: ATTEND Specialist
DX: M46.1 Sacroiliitis, not elsewhere classified
CPT/HCPCS: 99211

== ENCOUNTER → 2024-04-28 | Outpatient (CLI) | payer MEDICARE ==
[2024-04-28 13:36] VITALS: BP 170/80; PULSE 67; RESP 16; TEMP 97.1
--- NOTE | 2024-04-28 14:41 | P.PAINPG ---
PQRS Measure Charge Sheet Comment: HISTORY OF PRESENT ILLNESS: A 78 yr old male w at side presents today w severe and chronic LBP secondary to radiculopathy, spondylosis and facet arthropathy without myelopathy, BL Sacroiliitis for evaluation. Pt states pain level is provoked at 6 /10 in intensity, constant, localized in the R hip, dull in character w occasional shooting pain to the buttocks. Pain is provoked by lifting. Pain is alleviated by PT w massage x 6 wks which ended in Aug 2023 (lumbar, hip), physician guided home stretches every morning since Aug 2023, use of a cane for ambulatory assistance, medications, topical, repositioning and rest. Interventional procedures include R TFESI L5-S1 x1, R SI x1 (Aug 2023), BL SI x1 (Nov 2023), R Trochanteric Bursa Injection x1 (Feb 2024) Medications include Tramadol, Ibu, ASA REVIEW OF ORGAN SYSTEMS: CONSTITUTIONAL: No fevers or chills. No recent weight loss. NEUROLOGICAL: + numbness and tingling along the distal extremities. No seizure disorders or headaches. MUSCULOSKELETAL: + pain PSYCHIATRIC: Denies current depression or suicidal thoughts. Physical Examinations : Constitutional : Cooperative , not in acute distress . Neurologic : Cranial nerve II to XII intact. No focal neurological deficits. Psychiatric : alert & oriented x 3. Matching mood & appropriate affect. Judgment & insight intact. Musculoskeletal : Cervical Spine Motor strength in the deltoid and biceps: Normal right side. Normal Left side Motor strength biceps and the wrist extensors: Normal right side . Normal left side Motor strength in the triceps muscle: Normal right side. Normal left side Deep tendon reflexes: Normal at the biceps. Normal at Brachioradialis. Normal at triceps Vertebral body tenderness to deep palpation over Cervical facet loading test: positive bilaterally Spurling test: positive bilaterally Neck distraction test: positive bilaterally Magda sign: positive bilaterally Lumbar spine +R Trendelenburg Motor strength lower extremities ,thigh and legs 5/5 Right side , 5/5 Left side Deep tendon reflexes : Normal Knee Jerk. Normal Ankle Jerk Vertebral body tenderness over R L5 Grande Test positive Lumbar facet Loading Test: positive Right / positive Left Range of motion of the lumbar spine Flexion 30 degrees, extension 10 degrees Straight Leg Raise test: Left/ Right positive at 30 degrees Eliel test: positive right / positive left. Severe tenderness over the Sacroiliac joint on the Right / Left sides Gaenslen test: positive bilaterally Seated flexion test: positive bilaterally. Sacral spine : Severe tenderness over the Sacroiliac joint: right side / left side Range of motion: Flexion of the lumbar spine <60 degrees Range of motion: Extension of the lumbar spine <20 degrees Gaenslen's Test positive on R > L Eliel test: positive right side > l eft side Thigh Thrust Test BL positive Sacral Thrust Test Imaging: MRI noncontrast of the lumbar spine from 10/06/22 reviewed Awaiting MRI hip from Dr Hall which pt will deliver Assessment/ Plan : Lumbar radiculopathy, BL Sacroiliitis, R Hip Trochanteric Bursitis Recommendation of BL SI injection #2. Risks, benefits of procedure discussed and pt verbalized understanding. All questions answered. I have spent greater than 25 minutes on patient care today. Dr Vergara was available by phone for the evaluation of this patient. The time was used to review the medical records including relevant urine studies and Prescription history (MAPs), review of the available imaging, evaluation and examination of the patient, coordination of care with the medical staff and if applicable referring physicians, as well as creation of the medical record PQRS Narrative: Smoking Status Former smoker Hx Alcohol Use (MH) No Home Medications: Ambulatory Orders Budesonide [Pulmicort] 1 dose INHALATION BID 10/27/13 Cyclobenzaprine [Flexeril] 5 mg PO BID PRN 10/27/13 Desloratadine/Pseudoephedrine [Clarinex-D 12 Hour Tablet] 5 mg PO DAILY 10/27/13 EPINEPHrine (Auto Inject) [Epipen] 0.3 mg IM ONCE PRN 10/27/13 Fluconazole [Diflucan] 100 mg PO BID PRN 10/27/13 diphenhydrAMINE [Benadryl] 100 mg PO DIRECTED PRN 10/27/13 B Complex-Vit C-Vit E-Zinc [Z-Bec] 1 each PO DAILY 10/31/13 Calcium Carbonate/Vitamin D3 [Os-Lyle 500+D3 Caplet] 1 tab PO BID 10/31/13 Esomeprazole Magnesium [NexIUM] 20 mg PO BID 10/31/13 Guaifenesin/Pseudoephedrne HCl [Mucinex D ER Tablet] 1 tab PO DIRECTED PRN 05/09/14 Ipratropium/Albuterol Sulfate [Duoneb 0.5 mg-3 mg/3 ml Soln] 3 ml INHALATION DIRECTED PRN 10/31/13 Multivitamin [Men's Multi-Vitamin] 1 each PO DAILY 10/31/13 Bimatoprost [Lumigan .01% Ophth Soln] 1 drop BOTH EYES HS 11/30/16 Ergocalciferol [Vitamin D2 (DRISDOL)] 1 tab PO WEEKLY 02/28/18 Aspirin EC [Ecotrin Low Dose] 325 mg PO DAILY 01/22/23 traMADol HCL 50 mg PO Q6H PRN 3 Days #12 tab 01/22/23 Metoprolol Succinate [Toprol XL] 50 mg PO BID 02/08/23 Spironolactone 25 mg PO DAILY 12/18/23 Controlled Substance Measures - Controlled Substance Measures Is patient prescribed a controlled substance at discharge?: No
== END ==
LOC: PNWHC3 13:00
PROVIDERS: ATTEND Specialist
DX: M46.1 Sacroiliitis, not elsewhere classified (principal); M54.16 Radiculopathy, lumbar region; M70.61 Trochanteric bursitis, right hip; Z87.891 Personal history of nicotine dependence; Z91.018 Allergy to other foods; Z88.8 Allergy status to other drugs, medicaments and biological substances; Z91.040 Latex allergy status; Z91.011 Allergy to milk products; Z91.013 Allergy to seafood; Z88.1 Allergy status to other antibiotic agents; Z91.010 Allergy to peanuts
CPT/HCPCS: 99211

== ENCOUNTER 2024-07-04 09:39 | Day surgery (SDC) | payer MEDICARE ==
[2024-07-04] MEDS ORDERED: LACTATED RINGERS 1,000 ML IV SCH (10:14)
[2024-07-04 10:53] VITALS: TEMP 97.7
[2024-07-04 11:03] LABS: Glucose,Whole Blood 97 mg/dL (70-110)
[2024-07-04] MEDS ORDERED: ROPIVACAINE 5MG/ML 20ML VIAL ONE (11:27)
[2024-07-04] MEDS ORDERED: DEXAMETHASONE SOD PHOSPHATE 10 MG/ML 1 ML VIAL ONE (11:27)
--- NOTE | 2024-07-04 11:40 | P.PCN ---
Description of Procedure: Preprocedure diagnosis. Sacroiliac joint arthropathy. Postprocedure diagnosis. As above. Procedure done. Injection of the radio contrast material into bilateral sacroiliac joint, sacroiliac joint arthrogram, interpretation of arthrogram. Bilateral sacroiliac joint injection with local anesthetics and steroid under fluoroscopic guidance. Anesthesia. Local anesthetic infiltration. Continuous EKG, pulse ox, blood pressure, and verbal communication was maintained with the patient in OR. Blood loss. Minimal. Indication. Sacroiliac joint arthropathy. Discussed the procedure, alternatives, complications which may include infection,bleeding, nerve damage, aggravation of pain which could be permanent. Patient understands and questions were answered. 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 We avoided any contrast and methylprednisone. Procedure note. After getting consent patient in OR in prone position. Back prepped with chlorhexidine and draped in sterile manner. After injecting 10 mL of 1% lidocaine subcutaneously, a 22-gauge spinal needle was introduced under tunnel vision of the fluoroscope in the lower and posterior one third of right sacroiliac joint. After needle position confirmation by AP and crosstable lateral view, After repeat negative aspiration, 2.5 mL solution was injected w hich consists of 1.5 ml of 0.5% Ropivacaine mixed with 1 mL of 10 mg Decadron. In exactly same way left sacroiliac joint was injected with same amount of solution. After the procedure needles were taken out. Bandage applied. Disposition. Patient tolerated the procedure well. No complication. Patient was discharged home in stable condition.
[2024-07-04 12:11] VITALS: BP 157/81; PULSE 63; RESP 18
--- NOTE | 2024-07-04 13:03 | FL ---
EXAMINATION TYPE: FL guided pain mgmt statistic DATE OF EXAM: 07/04/2024 FLUOROSCOPY BILATERAL SI JT INJ, 19 SEC FLUORO, DAP .[id number] mGym2 3 images are submitted. [facility], Workstation: [id number], 07/04/2024 1:00 PM
== END 2024-07-04 12:30 | disposition home or self-care (01) ==
LOC: ORPAIN 09:39
PROVIDERS: ATTEND Pain Medicine Interventional Pain Medicine
DX: M46.1 Sacroiliitis, not elsewhere classified (principal); H91.90 Unspecified hearing loss, unspecified ear; Z88.8 Allergy status to other drugs, medicaments and biological substances; Z91.011 Allergy to milk products; Z91.030 Bee allergy status; Z91.018 Allergy to other foods; Z91.040 Latex allergy status
CPT/HCPCS: 27096; J1100; J2795; G0260

== ENCOUNTER → 2024-07-21 | Outpatient (CLI) | payer MEDICARE ==
[2024-07-21 12:07] VITALS: BP 189/80; PULSE 65; RESP 14; TEMP 98
--- NOTE | 2024-07-21 15:21 | P.PAINPG ---
PQRS Measure Charge Sheet Comment: HISTORY OF PRESENT ILLNESS: A 78 yr old male w at side presents today w severe and chronic LBP secondary to radiculopathy, spondylosis and facet arthropathy without myelopathy, BL Sacroiliitis for evaluation s/p BL SI injection #2. Pt states he experienced 60 % pain relief x 2 wks s/p procedure. Pt states pain level is provoked at 2 /10 in intensity, constant, localized in the R hip, dull in character w occasional shooting pain to the buttocks. Pain is provoked by lifting. Pain is alleviated by PT w massage x 6 wks which ended in Aug 2023 (lumbar, hip), physician guided home stretches every morning since Aug 2023, use of a cane for ambulatory assistance, medications, topical, repositioning and rest. Interventional procedures include R TFESI L5-S1 x1, R SI x1 (Aug 2023), BL SI x2 (Nov 2023, Jun 2024), R Trochanteric Bursa Injection x1 (Feb 2024) Medications include Tramadol, Ibu, ASA REVIEW OF ORGAN SYSTEMS: CONSTITUTIONAL: No fevers or chills. No recent weight loss. NEUROLOGICAL: + numbness and tingling along the distal extremities. No seizure disorders or headaches. MUSCULOSKELETAL: + pain PSYCHIATRIC: Denies current depression or suicidal thoughts. Physical Examinations : Constitutional : Cooperative , not in acute distress . Neurologic : Cranial nerve II to XII intact. No focal neurological deficits. Psychiatric : alert & oriented x 3. Matching mood & appropriate affect. Judgment & insight intact. Musculoskeletal : Cervical Spine Motor strength in the deltoid and biceps: Normal right side. Normal Left side Motor strength biceps and the wrist extensors: Normal right side . Normal left side Motor strength in the triceps muscle: Normal right side. Normal left side Deep tendon reflexes: Normal at the biceps. Normal at Brachioradialis. Normal at triceps Vertebral body tenderness to deep palpation over Cervical facet loading test: positive bilaterally Spurling test: positive bilaterally Neck distraction test: positive bilaterally Magda sign: positive bilaterally Lumbar spine +R Trendelenburg Motor strength lower extremities ,thigh and legs 5/5 Right side , 5/5 Left side Deep tendon reflexes : Normal Knee Jerk. Normal Ankle Jerk Vertebral body tenderness over R L5 Grande Test positive Lumbar facet Loading Test: positive Right / positive Left Range of motion of the lumbar spine Flexion 30 degrees, extension 10 degrees Straight Leg Raise test: Left/ Right positive at 30 degrees Eliel test: positive right / positive left. Severe tenderness over the Sacroiliac joint on the Right / Left sides Gaenslen test: positive bilaterally Seated flexion test: positive bilaterally. Sacral spine : Severe tenderness over the Sacroiliac joint: right side / left side Range of motion: Flexion of the lumbar spine <60 degrees Range of motion: Extension of the lumbar spine <20 degrees Gaenslen's Test positive on R > L Eliel test: positive right side > left side Thigh Thrust Test BL positive Sacral Thrust Test Imaging: MRI noncontrast of the lumbar spine from 10/06/22 reviewed Awaiting MRI hip from Dr Hall which pt will deliver Assessment/ Plan : Lumbar radiculopathy, BL Sacroiliitis, R Hip Trochanteric Bursitis Will manage residual pain and may RTC on an as needed basis. All questions answered. I have spent greater than 25 minutes on patient care today. Dr Vergara was available by phone for the evaluation of this patient. The time was used to review the medical records including relevant urine studies and Prescription history (MAPs), review of the available imaging, evaluation and examination of the patient, coordination of care with the medical staff and if applicable referring physicians, as well as creation of the medical record PQRS Narrative: Smoking Status Former smoker Hx Alcohol Use (MH) No Home Medications: Ambulatory Orders Cyclobenzaprine [Flexeril] 5 mg PO BID PRN 10/27/13 Desloratadine/Pseudoephedrine [Clarinex-D 12 Hour Tablet] 5 mg PO DAILY PRN 10/27/13 EPINEPHrine (Auto Inject) [Epipen] 0.3 mg SQ ONCE PRN 10/27/13 Esomeprazole Magnesium [NexIUM] 20 mg PO BID 10/31/13 Guaifenesin/Pseudoephedrne HCl [Mucinex D ER Tablet] 1 tab PO DIRECTED PRN 10/31/13 Ipratropium/Albuterol Sulfate [Duoneb 0.5 mg-3 mg/3 ml Soln] 3 ml INHALATION DIRECTED PRN 10/31/13 Bimatoprost [Lumigan .01% Ophth Soln] 1 drop BOTH EYES HS 11/30/16 Metoprolol Succinate [Toprol XL] 75 mg PO BID 02/08/23 Furosemide [Lasix] 40 mg PO DAILY 12/03/24 Potassium Chloride 15 meq PO DIRECTED PRN 05/27/24 Turmeric Root Extract [Turmeric] 1 cap PO BID 05/27/24 diphenhydrAMINE [Benadryl] 100 mg PO DIRECTED PRN 05/27/24 traMADol HCL 50 mg PO BID 05/27/24 Aspirin 325 mg PO BID 07/01/24 Controlled Substance Measures - Controlled Substance Measures Is patient prescribed a controlled substance at discharge?: No
== END ==
LOC: PNWHC3 10:13
PROVIDERS: ATTEND Specialist
DX: M54.16 Radiculopathy, lumbar region (principal); M46.1 Sacroiliitis, not elsewhere classified; M70.61 Trochanteric bursitis, right hip; Z91.018 Allergy to other foods; Z88.8 Allergy status to other drugs, medicaments and biological substances; Z91.040 Latex allergy status; Z91.011 Allergy to milk products; Z91.013 Allergy to seafood; Z88.1 Allergy status to other antibiotic agents; Z88.6 Allergy status to analgesic agent; Z91.048 Other nonmedicinal substance allergy status; Z91.010 Allergy to peanuts; Z87.891 Personal history of nicotine dependence
CPT/HCPCS: 99212

== ENCOUNTER → 2024-09-15 | Outpatient (CLI) | payer MEDICARE ==
[2024-09-15 12:44] VITALS: BP 148/67; PULSE 69; RESP 16; TEMP 97.2
--- NOTE | 2024-09-15 14:48 | P.PAINPG ---
Objective - Vital Signs Vital signs: Vital Signs Temp 97.2 F L 09/15/24 12:40 Pulse 69 09/15/24 12:40 Resp 16 09/15/24 12:40 BP 148/67 09/15/24 12:40 Pulse Ox 95 09/15/24 12:40 FiO2 PQRS Measure Charge Sheet Mode of Arrival: Ambulatory Comment: HISTORY OF PRESENT ILLNESS: A 78 yr old male w at side presents today w severe and chronic LBP secondary to radiculopathy, spondylosis and facet arthropathy without m yelopathy, BL Sacroiliitis for evaluation. Pt states pain level is provoked at 2-6 /10 in intensity, constant, localized in the coccyx, stabbing in character w shooting pain to buttocks. Pain is provoked by sitting for periods > 25 min Pain is alleviated by PT w massage x 6 wks which ended in Aug 2023 (lumbar, hip), physician guided home stretches every morning since Aug 2023, use of a cane for ambulatory assistance, medications, topical, repositioning and rest. Would like to wait until after Oct 02 until he decides to have TPIs or repeat BL SI. Interventional procedures include R TFESI L5-S1 x1, R SI x1 (Aug 2023), BL SI x2 (Nov 2023, Jun 2024), R Trochanteric Bursa Injection x1 (Feb 2024) Medications include Tramadol, Ibu, ASA, Lidoderm REVIEW OF ORGAN SYSTEMS: CONSTITUTIONAL: No fevers or chills. No recent weight loss. NEUROLOGICAL: + numbness and tingling along the distal extremities. No seizure disorders or headaches. MUSCULOSKELETAL: + pain PSYCHIATRIC: Denies current depression or suicidal thoughts. Physical Examinations : Constitutional : Cooperative , not in acute distress . Neurologic : Cranial nerve II to XII intact. No focal neurological deficits. Psychiatric : alert & oriented x 3. Matching mood & appropriate affect. Judgment & insight intact. Musculoskeletal : Cervical Spine Motor strength in the deltoid and biceps: Normal right side. Normal Left side Motor strength biceps and the wrist extensors: Normal right side . Normal left side Motor strength in the triceps muscle: Normal right side. Normal left side Deep tendon reflexes: Normal at the biceps. Normal at Brachioradialis. Normal at triceps Vertebral body tenderness to deep palpation over Cervical facet loading test: positive bilaterally Spurling test: positive bilaterally Neck distraction test: positive bilaterally Madga sign: positive bilaterally Lumbar spine +R Trendelenburg Motor strength lower extremities ,thigh and legs 5/5 Right side , 5/5 Left side Deep tendon reflexes : Normal Knee Jerk. Normal Ankle Jerk Vertebral body tenderness over R L5 Grande Test positive Lumbar facet Loading Test: positive Right / positive Left Range of motion of the lumbar spine Flexion 30 degrees, extension 10 degrees Straight Leg Raise test: Left/ Right positive at 30 degrees Eliel test: positive right / positive left. Severe tenderness over the Sacroiliac joint on the Right / Left sides Gaenslen test: positive bilaterally Seated flexion test: positive bilaterally. Sacral spine : Severe tenderness over the Sacroiliac joint: right side / left side Range of motion: Flexion of the lumbar spine <60 degrees Range of motion: Extension of the lumbar spine <20 degrees Gaenslen's Test positive on R > L Eliel test: positive right side > left side Thigh Thrust Test BL positive Sacral Thrust Test Imaging: MRI non contrast of the lumbar spine from 10/06/22 reviewed Awaiting MRI hip from Dr Hall which pt will deliver Assessment/ Plan : Lumbar dextroscoliosis, lumbar radiculopathy, L4-L5 stenosis, BL Sacroiliitis, R Hip Trochanteric Bursitis Will verify efficacy of BL SI injection on or after 10/02/24. All questions answered. I have spent greater than 25 minutes on patient care today. Dr Vergara was available by phone for the evaluation of this patient. The time was used to review the medical records including relevant urine studies and Prescription history (MAPs), review of the available imaging, evaluation and examination of the patient, coordination of care with the medical staff and if applicable referring physicians, as well as creation of the medical record - Pain Location Buttock Non-Pharmacological Interventions: Ice, Stretching Pharmacological Interventions: Topical Medication PQRS Narrative: Smoking Status Former smoker Blood Pressure 148/67 Pain Intensity [Buttock] 6 Scale Used Numeric (1 - 10) Hx Alcohol Use (MH) No Home Medications: Ambulatory Orders Cyclobenzaprine [Flexeril] 5 mg PO BID PRN 10/27/13 Desloratadine/Pseudoephedrine [Clarinex-D 12 Hour Tablet] 5 mg PO DAILY PRN 10/27/13 EPINEPHrine (Auto Inject) [Epipen] 0.3 mg SQ ONCE PRN 10/27/13 Esomeprazole Magnesium [NexIUM] 20 mg PO BID 10/31/13 Guaifenesin/Pseudoephedrne HCl [Mucinex D ER Tablet] 1 tab PO DIRECTED PRN 10/31/13 Ipratropium/Albuterol Sulfate [Duoneb 0.5 mg-3 mg/3 ml Soln] 3 ml INHALATION DIRECTED PRN 10/31/13 Bimatoprost [Lumigan .01% Ophth Soln] 1 drop BOTH EYES HS 11/30/16 Metoprolol Succinate [Toprol XL] 75 mg PO BID 02/08/23 Furosemide [Lasix] 40 mg PO DAILY 05/27/24 Potassium Chloride 15 meq PO DIRECTED PRN 05/27/24 Turmeric Root Extract [Turmeric] 1 cap PO BID 05/27/24 diphenhydrAMINE [Benadryl] 100 mg PO DIRECTED PRN 05/27/24 traMADol HCL 50 mg PO BID 05/27/24 Aspirin 325 mg PO BID 07/01/24 Controlled Substance Measures - Controlled Substance Measures Is patient prescribed a controlled substance at discharge?: No
== END ==
LOC: PNWHC3 12:12
PROVIDERS: ATTEND Specialist
DX: M48.061 Spinal stenosis, lumbar region without neurogenic claudication (principal); M46.1 Sacroiliitis, not elsewhere classified; M41.86 Other forms of scoliosis, lumbar region; M54.16 Radiculopathy, lumbar region; M70.61 Trochanteric bursitis, right hip; Z87.891 Personal history of nicotine dependence; Z91.018 Allergy to other foods; Z91.041 Radiographic dye allergy status; Z91.040 Latex allergy status; Z91.011 Allergy to milk products; Z91.013 Allergy to seafood; Z91.010 Allergy to peanuts; Z88.8 Allergy status to other drugs, medicaments and biological substances; Z88.6 Allergy status to analgesic agent; Z88.1 Allergy status to other antibiotic agents
CPT/HCPCS: 99212

== ENCOUNTER → 2024-11-11 | Day surgery (SDC) | payer MEDICARE ==
[2024-11-07 13:24] VITALS: BMI 38.4
[2024-11-11 12:31] VITALS: PULSE 60; RESP 17; TEMP 97.7
[2024-11-11 13:19] VITALS: BP 221/94
--- NOTE | 2024-11-11 13:41 | P.PN ---
Progress Note - Text Progress Note Date: 11/11/24 Bilateral sacroiliac joint steroid injection, in the preop holding area, blood pressure was significantly elevated, blood pressure was checked on multiple occasions was more than 200 systolic blood pressure and the diastolic blood pressure was more than 100, this reason I explained to the patient will be in the best interest to go to the emergency room because this is considered hypertensive urgency, we texted the primary care to see him MICHAEL but they were not able to see him today, and patient refused to go to the emergency room at [facility], patient want to go to the emergency room in [place], and his understood the urgency of the situation and they will go to the emergency room at [facility] today.
== END ==
LOC: ORPAIN 11:07
PROVIDERS: ATTEND Specialist
DX: Z53.8 Procedure and treatment not carried out for other reasons (principal); M46.1 Sacroiliitis, not elsewhere classified; I16.0 Hypertensive urgency